=== PATIENT | male | born 1950 | race Caucasian/White ===

== ENCOUNTER → 2017-11-25 11:47 | Outpatient (CLI) | payer MEDICARE, OTHER, SELFPAY ==
--- NOTE | 2017-11-25 | DI.RAD.S_ITS ---
PROCEDURE: XR LUMBAR SPINE 2-3V INDICATIONS: LOW BACK PAIN TECHNIQUE: 3 views of the lumbar spine were acquired. COMPARISON: None. FINDINGS: Bones: 5 [id number] vertebrae are present. There is multilevel minimal to mild retrolisthesis of the lumbar spine most notable at L1 on L2 and L5 on S1. Multilevel mild to moderate disc space narrowing is present. Moderate to severe foraminal narrowing is noted at multiple levels particularly at L4-5 and L5-S1.. No vertebral body compression fractures. No suspicious bony lesions. Multilevel anterior osteophyte are present most significant at L1-L2. Soft tissues: Overlying bowel gas pattern is normal. No suspicious soft tissue calcifications. IMPRESSION: Degenerative changes as above most notable at L5-S1. Dictated by: Juana Cole M.D. on 11/25/2017 at 15:32 Approved by: Juana Cole M.D. on 11/25/2017 at 15:35
== END ==
PROVIDERS: Visit Provider Physician Assistant
DX: M51.37 Other intervertebral disc degeneration, lumbosacral region (principal)
CPT/HCPCS: 72100

== ENCOUNTER → 2017-12-09 08:07 | Outpatient (CLI) | payer MEDICARE, OTHER, SELFPAY ==
--- NOTE | 2017-12-09 | DI.MRI.S_ITS ---
PROCEDURE: MR THORACIC SPINE WO CON INDICATIONS: SCIATICA LEFT SIDE TECHNIQUE: Noncontrast sagittal T1 spine echo and T2 fast spin echo, sagittal STIR, axial T1 and T2 fast spin echo through the thoracic spine. COMPARISON: [facility], MR, THORACIC SPINE W/O CONTRAST, 01/20/2006, 7:45. [facility], RG, XR T-SPINE 2-3V, 11/27/2005, 9:40. [facility], MR, MR LUMBAR SPINE WO CON, 12/09/2017, 9:19. FINDINGS: Image quality: Excellent. Alignment and Curvature: There is normal bony alignment. Bone Marrow: Marrow is of normal overall signal. No acute vertebral body compression fractures. Spinal Cord: Visualized spinal cord is normal in size and signal. Paraspinous Soft Tissues: No paravertebral masses. Miscellaneous: On axial images, foramina appear widely patent at all scanned levels. Multilevel disc desiccation is present. Minimal disc bulge is present at T2-3-1, posterior central small protrusion at T5-6, left posterior paracentral protrusion at T6-7 with indentation of the anterior thecal sac and cord, similar appearance at T7-8 although less prominent, minimal central/right paracentral protrusion at T8-9, minimal disc bulge T9-10. All were present on prior exam and demonstrate interval interval progression. IMPRESSION: Multilevel disc bulges and protrusions as above with minimal interval progression compared to prior exam. Dictated by: Juana Cole M.D. on 12/09/2017 at 14:00 Approved by: Juana Cole M.D. on 12/09/2017 at 14:20
--- NOTE | 2017-12-09 | DI.MRI.S_ITS ---
PROCEDURE: MR LUMBAR SPINE WO CON INDICATIONS: SCIATICA LEFT SIDE TECHNIQUE: Noncontrast sagittal T1 spin echo and T2 fast echo, sagittal STIR, axial T1 and T2 fast spin echo through the lumbar spine. In cases with scoliosis, additional coronal T2 fast spin echo may be performed. COMPARISON: [facility], CR, XR LUMBAR SPINE 2-3V, 11/25/2017, 11:48. FINDINGS: Image quality: Excellent. Alignment and Curvature: There is normal bony alignment. Bone Marrow: Marrow is of normal overall signal. Increased T1 and T2 signal is present within the T12 vertebral body, L2 and L3 posterior vertebral body/pedicle regions. There is most suggestive of hemangiomas. No acute vertebral body compression fractures. Spinal Cord: Conus medullaris terminates at the L1 level. Visualized cord demonstrates normal signal and size. Paraspinous Soft Tissues: No paravertebral masses. Partially visualized T2 hyperintensity is present within the left kidney, suggestive of cyst. No priors are available for comparison.. Discs: Mild to moderate desiccation is present throughout the lumbar spine most severe at L1-L2 and L2-3. L1-L2: Mild disc bulge with compromise of the right lateral recess. There is mild epidural lipomatosis as well as facet and ligamentum flavum hypertrophy. Mild spinal stenosis is present. Mild bilateral foraminal narrowing. L2-L3: Mild disc bulge with mild/moderate spinal stenosis. There is prominent facet and ligamentum flavum hypertrophy as well as minimal to mild epidural lipomatosis. Moderate right and mild to moderate left foraminal narrowing. L3-L4: Mild disc bulge with mild spinal stenosis. There is moderate left and mild to moderate right foraminal narrowing with facet and ligamentum flavum hypertrophy. L4-L5: Mild broad-based disc bulge with mild compromise lateral recesses bilaterally. Moderate spinal stenosis is present. There is moderate to severe left and mild to moderate right foraminal narrowing with facet and ligamentum flavum hypertrophy. L5-S1: Mild disc bulge with mild spinal stenosis. Moderate to severe left and mild to moderate right foraminal narrowing facet and ligamentum flavum hypertrophy. IMPRESSION: 1. Multilevel degenerative changes are present. 2. Mild to moderate spinal stenosis most notable at L4-5 secondary to disc bulges with contributing effects of facet/ligamentum flavum arthropathy as well as epidural lipomatosis. 3. Multilevel foraminal narrowing most severe at L4-5 and L5-S1 secondary to facet arthropathy. 3. Left renal T2 hyperintensity, partially visualized as above. No priors are available for comparison. Further evaluation with ultrasound may be obtained to fully visualize and characterize the lesion. Dictated by: Juana Cole M.D. on 12/09/2017 at 14:21 Approved by: Juana Cole M.D. on 12/09/2017 at 14:29
== END ==
PROVIDERS: PCP Physician Assistant; Visit Provider Physician Assistant
DX: M51.36 Other intervertebral disc degeneration, lumbar region (principal); M47.817 Spondylosis without myelopathy or radiculopathy, lumbosacral region; M51.84 Other intervertebral disc disorders, thoracic region; M54.32 Sciatica, left side
CPT/HCPCS: 72146; 72148

== ENCOUNTER 2018-04-07 21:48 | Emergency (ER) | payer MEDICARE, OTHER, SELFPAY ==
[2018-04-07 21:50] VITALS: BP 154/83; PULSE 78; RESP 16; TEMP 37.2; O2SAT 98
--- NOTE | 2018-04-07 22:29 | DI.CT.S_ITS ---
PROCEDURE: CT LUMBAR SPINE WO CON INDICATIONS: Increased low back pain status post back surgery TECHNIQUE: Noncontrast 3 mm thick sections acquired from the T12 level to the sacrum. Sagittal and coronal reformats were constructed. For radiation dose reduction, the following was used: automated exposure control. COMPARISON: None. FINDINGS: Image quality: Excellent. Bones: Postsurgical changes compatible with left L4-L5 and L5-S1 laminotomies. There is normal bony alignment. No acute vertebral body compression fractures. L4 and L5 mildly displaced spinous process fractures are noted. No suspicious lytic or blastic bony lesions. No pars defects. Soft tissues: No retroperitoneal masses or hematomas. Inflammatory stranding and small air locules noted in the subcutaneous fat of the posterior spelled paraspinal soft tissues possibly related to recent surgery, however infectious process cannot be excluded by imaging alone. Visualized aorta is normal in caliber. IMPRESSION: 1. L4 and L5 spinous process fractures. 2. Status post L4-L5 and L5-S1 left hemilaminotomies. 3. Inflammatory stranding and air locules in the posterior paraspinal soft tissues which could related to recent surgery versus cellulitis. Please correlate with clinical data. Dictated by: Leda Cedeño MD, PhD on 04/08/2018 at 7:28 Approved by: Leda Cedeño MD, PhD on 04/08/2018 at 7:46
--- NOTE | 2018-04-07 22:35 | ED.BACK ---
HPI - Back Pain/Injury General Chief Complaint: Back Pain/Injury Stated Complaint: Back Pain,s/p back surger Wednesday Time Seen by Provider: 04/07/18 22:15 Source: patient and family () Limitations: no limitations History of Present Illness HPI Narrative: This is a 67-year-old male who had laminectomy recently at [facility]. Patient states his pain was somewhat controlled but has been worse on the last day or 2. He has been taking oxycodone as well as sometimes Soma. Patient has not had any new trauma, no new falls. He did have a fever but they contacted his surgeon which they stated that is not uncommon after surgery. Patient was discharged within 24 hr of his surgery although he was able to ambulate. He was told to ambulate regularly on the patient has been doing this but seems to increase his pain when he does. He felt like he has had some new pain kind of into the left buttock as well as some tingly down his leg. He has not had any loss of bowel or bladder control. Incision Um has had very small amount of drainage but nothing purulent. Related Data Home Medications Medication Instructions Recorded Confirmed ibuprofen 600 mg PO TID 04/07/18 04/07/18 methocarbamol [Robaxin-750] 750 mg PO QID 04/07/18 04/07/18 oxycodone 15 mg PO Q4-6H PRN 04/07/18 04/07/18 Previous Rx's Medication Instructions Recorded amitriptyline 150 mg PO HS #45 tab 05/29/16 cephalexin [Keflex] 500 mg PO QID #20 cap 06/29/16 Allergies Allergy/AdvReac Type Severity Reaction Status Date / Time iodine [IODINE] Allergy Unknown Hot rash Verified 04/07/18 21:49 Review of Systems Review of Systems All systems reviewed & are unremarkable except as noted in HPI and below Constitutional Reports fever(s) and Denies weakness Cardiovascular Denies chest pain, Denies irregular heart rhythm, Denies lightheadedness, Denies palpitations, Denies dyspnea, Denies dyspnea on exertion and Denies orthopnea Respiratory Denies cough, Denies dyspnea, Denies dyspnea on exertion and Denies wheezing Gastrointestinal Gastrointestinal: Denies abdominal pain, Denies change in bowel habits, Reports constipation ( Had BM today), Denies nausea, Denies vomiting and Denies other ( fecal incontinence) Genitourinary Denies urinary incontinence Musculoskeletal Reports as per HPI ( healing incision), Reports back pain and Reports tingling Integumentary/Breasts Reports wounds ( healing incision) Neurologic Denies sensory deficit, Reports tingling and Denies weakness Endocrine Denies palpitations Allergic/Immunologic Denies wheezing Exam Narrative Exam Narrative: GENERAL: Alert and oriented x three, obese male in moderate distress. HEENT: Head normocephalic, atraumatic, EOMI, pupils reactive, face symmetric, moist mucous membranes NECK: Supple, full range of motion CARDIOVASCULAR: Regular rate and rhythm without murmurs, rubs or gallops. RESPIRATORY: Breath sounds equal bilaterally, no wheezes rales or rhonchi. ABDOMEN: Soft, nontender. Normoactive bowel sounds all 4 quadrants. No guarding or rebound, rigidity, no mass : No CVA tenderness BACK: No cervical, thoracic or lumbar vertebral point tenderness. Patient has Slightly decreased range of motion. patient is able to roll over the bed without any assistance. He is able to lift and move his legs without any assistance although appears somewhat uncomfortable. Patient's gait Has not been tested.. Rectal exam is Normal sphincter tone. Muscle strength is 5/5 in lower extremities, DTRs are 2/4 and lower extremities. Dorsalis pedis and tibialis pulses are 2+ and lower extremities. Sensation is intact in the lower extremities. EXTREMITIES: Normal range of motion, no clubbing or edema. Neurovascularly intact NEUROLOGICAL: Cranial nerves II through XII grossly intact. Moving all extremities SKIN: Warm, dry, no petechiae, no rashes, patient has midline incision over the lower lumbar spine that appears clean dry and intact with some dried blood in scabbing. No erythema, no cellulitis, no foul order drainage. Initial Vital Signs Initial Vital Signs: Vital Signs Temperature 99.0 F 04/07/18 21:50 Pulse Rate 78 04/07/18 21:50 Respiratory Rate 16 04/07/18 21:50 Blood Pressure 154/83 H 04/07/18 21:50 Pulse Oximetry 98 04/07/18 21:50 Course Orders Ordered: ED Orders 04/07/18 22:29 CT lumbar spine wo con Stat 04/07/18 22:42 Basic Metabolic Panel Stat Complete Blood Count AUTO DIFF Stat Procalcitonin Stat Discontinued Medications Diazepam (Valium) 5 mg PO NOW ONE Stop: 04/07/18 22:30 Last Admin: 04/07/18 22:45 Dose: 5 mg Hydromorphone HCl (Dilaudid) 1 mg IV NOW ONE Stop: 04/07/18 22:30 Last Admin: 04/07/18 22:45 Dose: 1 mg Ketorolac Tromethamine (Toradol) 60 mg IM NOW ONE Stop: 04/07/18 22:30 Last Admin: 04/07/18 22:43 Dose: Ketorolac Tromethamine (Toradol) 30 mg IV NOW ONE Stop: 04/07/18 23:20 Last Admin: 04/07/18 23:21 Dose: 30 mg Reevaluation(s) Reevaluation #1: Patient's Patient is minimally improved. Time: 23:05 Reevaluation #2: patient's pain improved after addition of Torodal to other pain medication. Patient and I reviewed his lab work as well as imaging finding. They are aware that the CT was without contrast and therefore not is useful in terms of infection but his lab work med physical exam did not show any signs of infection. Patient and I discussed the medications that he has on he can continue his oxycodone and Soma for pain control. He has meloxicam which she has not been taking he has been taking ibuprofen so we discussed stopping the ibuprofen and increasing the meloxicam. Patient and his were comfortable with this plan. Time: 00:17 Vital Signs - 8 hr 04/07/18 21:50 04/07/18 23:16 04/08/18 00:34 Temperature 99.0 F Pulse Rate 78 67 66 Respiratory Rate 16 15 Blood Pressure 154/83 H 113/60 Blood Pressure [Right Arm] 145/73 H Pulse Oximetry 98 91 94 MDM - Back Pain/Injury Lab Data Result diagrams: 04/07/18 22:42 04/07/18 22:42 Lab Results 04/07/18 04/07/18 04/07/18 Range/Units 22:42 22:42 22:42 WBC 6.7 (4.5-11.0) X10^3/uL RBC 4.26 L (4.5-5.9) X10^6/uL Hgb 12.5 L (13.5-17.5) g/dL Hct 36.4 L (41-53) % MCV 85.4 (80-100) fL MCH 29.3 (26-34) PG MCHC 34.3 (30-36) % RDW 13.7 (11.6-14.8) % Plt Count 185 (150-400) X10^3/uL Neut % (Auto) 62.7 (50-75) % Lymph % (Auto) 21.4 L (25-40) % [place] % (Auto) 8.9 (3-14) % Eos % (Auto) 6.3 H (2-4) % Baso % (Auto) 0.7 (0-2) % Neut # (Auto) 4200 (1470-9323) /uL Sodium 138 (137-145) mmol/L Potassium 4.5 (3.4-5.1) mmol/L Chloride 101 (98-107) mmol/L Carbon Dioxide 34 H (22-32) mmol/L BUN 22 H (9-20) mg/dL Creatinine 1.00 (0.66-1.25) mg/dL Estimated GFR > 60.0 (>60) mL/min BUN/Creatinine Ratio 22.0 (6-22) Glucose 92 (80-110) mg/dL Calcium 8.9 (8.4-10.2) mg/dL Procalcitonin < 0.05 (<0.5) ng/mL Urine Dip Bedside Urine Glucose Negative Bedside Urine Bilirubin - Negative Bedside Urine Ketone - Negative Urine Specific [place] 1.015 Bedside Urine Occult Blood - Negative Bedside Urine pH 6.5 Bedside Urine Protein - Negative Bedside Urine Urobilinogen - Negative Bedside Urine Nitrite - Negative Bedside Urine Leukocytes - Negative Esterase Discharge Plan Departure Patient Disposition: Home Clinical Impression: Back pain, History of laminectomy Discharge Date/Time: 04/08/18 00:22 Interventions: ED Discharge Assessment Last Done: 04/08/18 00:34 Instructions: Back Pain (Alternative Therapy) Activity Restrictions/Additional Instructions: Follow-up at your scheduled appointment for recheck. Take medications as prescribed, these medications can make you sleepy do not drive, perform hazards activities or make any major decisions while taking them. You may take meloxicam with your oxycodone and methocarbamol. Do not take meloxicam with ibuprofen. Continue to take stool softener as prescribed. Return for new weakness, loss of sensation, bowel or bladder incontinence or other new or concerning symptoms. Prescriptions: No Action amitriptyline 100 MG tablet 150 mg PO HS Qty: 45 RF: 5 cephalexin [Keflex] 500 MG capsule 500 mg PO QID Qty: 20 RF: 0 methocarbamol [Robaxin-750] 750 mg Tablet 750 mg PO QID RF: 0 ibuprofen 600 mg Tablet 600 mg PO TID RF: 0 oxycodone 15 mg Tablet, Oral Only 15 mg PO Q4-6H PRN (Reason: Pain (Scale Score 1-3)) RF: 0
[2018-04-07] MEDS: diazePAM 5 MG TABLET PO (22:45)
[2018-04-07] MEDS: HYDROMORPHONE 1 MG INJ IV (22:45)
[2018-04-07 23:00] LABS: Add Manual Diff / Slide Review NO; Basophils Percent Auto 0.7 % (0-2); Eosinophils Percent Auto 6.3 % (2-4); Hematocrit 36.4 % (41-53); Hemoglobin 12.5 g/dL (13.5-17.5); Lymphocytes Percent Auto 21.4 % (25-40); Mean Corpuscular HGB Conc 34.3 % (30-36); Mean Corpuscular Hemoglobin 29.3 PG (26-34); Mean Corpuscular Volume 85.4 fL (80-100); Monocytes Percent Auto 8.9 % (3-14); Neutrophils Absolute Auto 4200 /uL (3000-5900); Neutrophils Percent Auto 62.7 % (50-75); Platelet Count 185 X10^3/uL (150-400); Red Blood Cell Count 4.26 X10^6/uL (4.5-5.9); Red Cell Distribution Width 13.7 % (11.6-14.8); White Blood Cell Count 6.7 X10^3/uL (4.5-11.0)
[2018-04-07 23:06] LABS: Blood Urea Nitrogen 22 mg/dL (9-20); Calcium 8.9 mg/dL (8.4-10.2); Carbon Dioxide 34 mmol/L (22-32); Chloride 101 mmol/L (98-107); Estimated Glomerular Filt Rate > 60.0 mL/min (>60); Glucose 92 mg/dL (80-110); HEMOLYSIS < 15 (0-50); Potassium 4.5 mmol/L (3.4-5.1); Sodium 138 mmol/L (137-145)
[2018-04-07 23:16] VITALS: BP 145/73; PULSE 67; O2SAT 91
[2018-04-07 23:21] LABS: Procalcitonin < 0.05 ng/mL (<0.5)
[2018-04-07] MEDS: KETOROLAC 60 MG/2 ML VIAL 30 MG IV (23:21)
[2018-04-08 00:34] VITALS: BP 113/60; PULSE 66; RESP 15; O2SAT 94
--- NOTE | 2018-04-08 00:40 | PC.NURSE ---
Pt had surgery on Wednesday,today his pain is getting worse radiating down his left leg with numnbess/tingling.
== END 2018-04-08 00:22 | disposition home or self-care (01) ==
PROVIDERS: Emergency Provider Emergency Medicine; PCP Physician Assistant
DX: M54.9 Dorsalgia, unspecified (principal); Z98.890 Other specified postprocedural states
CPT/HCPCS: 36415; 72131; 80048; 81003; 84145; 85025; 96374; 96375; 99282; 99284; J1170; J1885

== ENCOUNTER 2018-10-24 10:30 | Outpatient (RCR) | payer MEDICARE, OTHER, SELFPAY ==
--- NOTE | 2018-09-29 13:22 | PT.OIE ---
Current Diagnoses Other chronic pain (09/28/18) Unilateral primary osteoarthritis, right knee (09/28/18) Dorsalgia, unspecified (09/28/18) Provider Visit Care Team Role Provider Type Dania Wiley PA-C Family Provider Advanced Merry Go Round Operator Primary Care Provider Specialty: Internal Medicine Address: [address] [place] [address], [id number] Email: Rosalba Lutz PA-C Attending Provider Non-Staff Specialty: Medical Address: [address] [place] [address], [id number] Email: Physical Therapy Initial Evaluation PT-OP-A Visit Information Start: 09/28/18 15:59 Freq: Status: Active Protocol: Document 09/28/18 16:00 EA (Rec: 09/29/18 13:03 EA [id number]) Out-Patient Physical Therapy Visit Information Visit Information Visit Type Initial Evaluation Visit Start Time 15:15 Visit Stop Time 16:55 Total Visit Minutes 40 Visit Number 1 Number of LABORER PRESTRESSED CONCRETE Visits 0 Evaluation Information Evaluation Date 09/28/18 Precautions Precautions History of low back surgery ( 2018) PT-OP-B Current Condition Start: 09/28/18 15:59 Freq: Status: Active Protocol: Document 09/28/18 16:00 EA (Rec: 09/29/18 13:03 EA [id number]) Current Condition History of Current Condition Onset Date s/p R partial knee replacement Current Complaints Pain and weakness to right knee History of Current Condition Patient is s/p right partial knee replacement 6 weeks ago at [facility], and s/p lumbar laminectomy in 2018 with residual pain to low back area region. Patient was sent to home after a day surgery with no post surgery HEP. Patient thinks that right knee delayed healing is due to weight gained since the surgery. Pt denies any fall or recent injury, denies calf pain and tightness. Prior Treatments and Tests Left partial knee surgery 2014 Right partial knee July 2017 Lumbar laminectomy 2017 Future Testing and Treatments Planned None identified Treatment Goals Patient/Caregiver Goals Patient would like to improve in all types mobility with no increase of pain. Patient would like to improve knee ROM Patient would like to improve RLE strength Prior Functional Status Baseline Function- ADL's Independent Baseline Function- Mobility Independent Baseline Function- Gait Independent with no AD with no difficulty a year ago prior to OA diagnosis Baseline Function- Work/School Retired Baseline Function- Recreation/Hobbies Patient likes to perform yard works, distance walking Current Functional Impairments (Reported) Functional Limitations- ADL's Independent but difficulty in all activities that require standing with side to side movement and staris. Functional Limitations- Mobility/Gait Independent but difficulty in all activities that require standing with side to side movement and stairs. Functional Limitations- Work/School Retired Functional Limitations- Recreation/ Difficulty in all yard works Hobbies with lots backward and lateral movement PT-OP-C Subjective Start: 09/28/18 15:59 Freq: Status: Active Protocol: Document 09/28/18 16:00 EA (Rec: 09/29/18 13:03 EA [id number]) OP-PT Subjective Patient Comments Patient Comments I have pain when move backward and side to side motion. I just want to get rid of the pain in the knee. Patient reports low back pain si not the main issue, he just want everyone aware that he has low back surgery and pain. Patient Reported Progress Same Patient Questionnaires Lower Extremity Functional Scale LEFS Score 52 LEFS Impairment 20 to 39% Impaired (Score 48- 62) OP-PT Pain Assessment Location Right Anterior Medial Knee Pain Location Details 3 Scale Used Numeric (1 - 10) Description Pinching Pressure Tender Tightness Frequency Intermittent Pain Aggravating Factors Activity Walking Stair Climbing Bending Lifting Other Pain Aggravating Factors Bending and side to side movement Pain Alleviating Factors Cold Medication Home Pain Medication Use Pain Medications Used Yes PT-OP-D Balance Start: 09/28/18 15:59 Freq: Status: Active Protocol: Document 09/28/18 16:00 EA (Rec: 09/29/18 13:03 EA [id number]) OP-PT Balance Assessment Sitting Balance Static Sitting Balance Ability Normal Dynamic Sitting Balance Ability Normal Standing Balance Static Standing Balance Ability Good Dynamic Standing Balance Ability Good Device Used none Balance Tests Single Limb Standing Single Limb- Right < 2 seconds Single Limb- Left < 3 seconds Locke Fall Scale Copyright Permission Chucky MORRELL, Chucky RM, Phli SJ. Development of a scale to identify the fall- prone patient. Can J Aging 1989;8;366-7. Judah Locke (2009). Preventing patient falls. (2nd ed). [place]: Michael. PT-OP-F Manual Assessment Start: 09/28/18 15:59 Freq: Status: Active Protocol: Document 09/28/18 16:00 EA (Rec: 09/29/18 13:03 EA [id number]) Manual Assessments Soft Tissue Assessment Soft Tissue Mobility Assessment right quads, hamstring, calf tightness Joint Mobility Assessment Joint Mobility Assessment PF and TF joint hypomobile PT-OP-G Mobility & Gait Start: 09/28/18 15:59 Freq: Status: Active Protocol: Document 09/28/18 16:00 EA (Rec: 09/29/18 13:03 EA [id number]) OP Gait Assessment Gait Gait Assistance Required: Independent Assistive Devices Assistive Device None Gait Deviations General Gait Pattern Antalgic Decreased Stride Length Factors Limiting Gait Function Factors Limiting Gait Function Decreased Strength Limited Range of Motion Pain Stair Climbing Evaluation Evaluation Level of Assist On Stairs Independent Devices Stair Climbing Assistive Devices Right Railing Technique/Endurance Stair Climbing Direction Ascend and Descend Stair Climbing Technique Step to Step Number of Steps Climbed 4 Stair Climbing Set # Repetitions (reps) 1 Comments Stair Climbing Comments requires arm help with left foot descent first PT-OP-J Posture/Palpation/Skin Start: 09/28/18 15:59 Freq: Status: Active Protocol: Document 09/28/18 16:00 EA (Rec: 09/29/18 13:03 EA [id number]) Posture Evaluation Comments Posture Comments Fair general body posture; no knee valgus/varus deformity noted Palpation Assessment Location One Palpation Location Right qudas, hamstring, medial knee joint Palpation Findings Soft Tissue Tightness Muscle Guarding Tenderness Palpation Details Grade 1 pitting edema to right knee PT-OP-K Range of Motion Start: 09/28/18 15:59 Freq: Status: Active Protocol: Document 09/28/18 16:00 EA (Rec: 09/29/18 13:03 EA [id number]) Hip Goniometric Range of Motion Hip Measured in Degrees Right Active Hip ROM WFL Yes Knee Goniometric Range of Motion Knee Measured in Degrees Right Patient Position Supine Flexion Active (degrees) 110 Extension Active (degrees) 5 Left Patient Position Supine Flexion Active (degrees) 120 Extension Active (degrees) 0 Knee ROM Limitations Knee ROM Limitations Soft Tissue Tightness Pain Swelling PT-OP-L Special Tests Start: 09/28/18 15:59 Freq: Status: Active Protocol: Document 09/28/18 16:04 EA (Rec: 09/29/18 13:05 EA [id number]) Special Tests Knee Special Tests Valgus- 0 Degrees Test Results - Valgus- 25 Degrees Test Results - Staci's Test Test Results - PT-OP-M Strength Start: 09/28/18 15:59 Freq: Status: Active Protocol: Document 09/28/18 16:00 EA (Rec: 09/29/18 13:03 EA [id number]) Knee Strength Knee Manual Muscle Testing Right Flexion (S2) 4- Good- Extension (L3) 4+ Good+ Comments Pain elicits with max resistance PT-OP-Q Treatments Start: 09/28/18 15:59 Freq: Status: Active Protocol: Document 09/28/18 16:00 EA (Rec: 09/29/18 13:03 EA [id number]) Self-Care/Home Management Treatment Education Patient Education Body Mechanics Home Exercise Program Joint Protection Pain Management Safety PT-OP-T Assessment and Plan Start: 09/28/18 15:59 Freq: Status: Active Protocol: Document 09/28/18 15:15 EA (Rec: 09/29/18 11:14 EA [id number]) Physical Therapy Assessment Rehab Potential Rehabilitation Potential Good Evaluation Complexity Number of Personal Factors/Comorbidities 3 or More Number of Body Systems Impaired 3 Clinical Presentation at Evaluation Evolving Impairments Impairments Activity Tolerance Balance Functional Activities Pain ROM Soft Tissue Mobility Strength Goals Three Impairment Impaired knee ROM Wardrobe Specialist Goal (LTG) Patient will increase knee flexion AROM to 120degrees and 0 deg EXT to improved patients gait LTG Duration 4 wks Two Impairment LEFS 52/80 Half-Way Goal (LTG) Patient have LEFS > 60 LTG Duration 4 wks One Impairment NO HEP in place Wardrobe Specialist Goal (LTG) Patient will comply and perform HEP independently LTG Duration 3 wks Assessment Summary Assessment Pleasant 68 y/o M patient who is s/p right partial knee replacement 6 weeks ago with no secondary healing complications. Today patient exhibits gait difficulty, stairs difficulty, and decreased ability in side to side movement due to knee pain . Objective assessment reveals LOM to flexion and extension, 1 grade MMT lower than normal, SLS difficulty and lack of right push off during gait. MCL test and meniscus test reveals negative . Due to above mentioned deficits patient unable to perform tasks that requires standing and bending knees. In my professional opinion, patient is will benefit with skilled PT to address the issues. Physical Therapy Plan Frequency and Duration Frequency of Treatment 2x/Week Duration of Treatment 8 wks Plan of Care Start Date 09/28/18 Plan of Care End Date 11/16/18 Therapeutic Interventions Therapeutic Interventions Balance Training Gait Training Home Exercise Program Joint Mobilizations Manual Therapy Patient/Caregiver Education Self-Care/Home Management Soft Tissue Mobilization Taping Therapeutic Exercises Modalities Cold Pack/Ice Massage Electric Stimulation Hot Packs Iontophoresis Next Visit Focus/Plan Next Note Type Treatment Note
--- NOTE | 2018-09-29 13:22 | PT.OPPOC ---
Current Diagnoses Other chronic pain (09/28/18) Unilateral primary osteoarthritis, right knee (09/28/18) Dorsalgia, unspecified (09/28/18) Provider Visit Care Team Role Provider Type Dania Wiley PA-C Family Provider Advanced Electrician Apprentice Powerhouse Primary Care Provider Specialty: Internal Medicine Address: [address] [place] [address], [id number] Email: Rosalba Lutz PA-C Attending Provider Non-Staff Specialty: Medical Address: [address] [place] [address], [id number] Email: Plan Of Care PT-OP-T Assessment and Plan Start: 09/28/18 15:59 Freq: Status: Active Protocol: Document 09/28/18 15:15 EA (Rec: 09/29/18 11:14 EA [id number]) Physical Therapy Assessment Rehab Potential Rehabilitation Potential Good Evaluation Complexity Number of Personal Factors/Comorbidities 3 or More Number of Body Systems Impaired 3 Clinical Presentation at Evaluation Evolving Impairments Impairments Activity Tolerance Balance Functional Activities Pain ROM Soft Tissue Mobility Strength Goals Three Impairment Impaired knee ROM Halfway Goal (LTG) Patient will increase knee flexion AROM to 120degrees and 0 deg EXT to improved patients gait LTG Duration 4 wks Two Impairment LEFS 52/80 Halfway Goal (LTG) Patient have LEFS > 60 LTG Duration 4 wks One Impairment NO HEP in place Crew Leader Gluing Goal (LTG) Patient will comply and perform HEP independently LTG Duration 3 wks Assessment Summary Assessment Pleasant 68 y/o M patient who is s/p right partial knee replacement 6 weeks ago with no secondary healing complications. Today patient exhibits gait difficulty, stairs difficulty, and decreased ability in side to side movement due to knee pain . Objective assessment reveals LOM to flexion and extension, 1 grade MMT lower than normal, SLS difficulty and lack of right push off during gait. MCL test and meniscus test reveals negative . Due to above mentioned deficits patient unable to perform tasks that requires standing and bending knees. In my professional opinion, patient is will benefit with skilled PT to address the issues. Physical Therapy Plan Frequency and Duration Frequency of Treatment 2x/Week Duration of Treatment 8 wks Plan of Care Start Date 09/28/18 Plan of Care End Date 11/16/18 Therapeutic Interventions Therapeutic Interventions Balance Training Gait Training Home Exercise Program Joint Mobilizations Manual Therapy Patient/Caregiver Education Self-Care/Home Management Soft Tissue Mobilization Taping Therapeutic Exercises Modalities Cold Pack/Ice Massage Electric Stimulation Hot Packs Iontophoresis Next Visit Focus/Plan Next Note Type Treatment Note Plan of Care Dates Plan of Care Start Date 09/28/18 Plan of Care End Date 11/16/18 Please Sign and Return: I have reviewed this Plan of Care and certify that the skilled therapy services above are required to meet the patient?s needs. Physician Signature Date Printed Name and Credentials Clinical Instructor Signature Printed Name and Credentials
--- NOTE | 2018-10-03 13:10 | PT.OTN ---
Current Diagnoses Other chronic pain (10/03/18) Unilateral primary osteoarthritis, right knee (10/03/18) Dorsalgia, unspecified (10/03/18) Physical Therapy Treatment Note PT-OP-A Visit Information Start: 09/28/18 15:59 Freq: Status: Active Protocol: Document 10/03/18 12:56 EA (Rec: 10/03/18 13:02 EA [id number]) Out-Patient Physical Therapy Visit Information Visit Information Visit Type Treatment Note Visit Start Time 12:15 Visit Stop Time 13:08 Total Visit Minutes 53 Visit Number 2 PT-OP-B Current Condition Start: 09/28/18 15:59 Freq: Status: Active Protocol: Document 09/28/18 16:00 EA (Rec: 09/29/18 13:03 EA [id number]) Current Condition History of Current Condition Onset Date s/p R partial knee replacement Current Complaints Pain and weakness to right knee History of Current Condition Patient is s/p right partial knee replacement 6 weeks ago at [facility], and s/p lumbar laminectomy in 2018 with residual pain to low back area region. Patient was sent to home after a day surgery with no post surgery HEP. Patient thinks that right knee delayed healing is due to weight gained since the surgery. Pt denies any fall or recent injury, denies calf pain and tightness. Prior Treatments and Tests Left partial knee surgery 2014 Right partial knee July 2017 Lumbar laminectomy 2017 Future Testing and Treatments Planned None identified Treatment Goals Patient/Caregiver Goals Patient would like to improve in all types mobility with no increase of pain. Patient would like to improve knee ROM Patient would like to improve RLE strength Prior Functional Status Baseline Function- ADL's Independent Baseline Function- Mobility Independent Baseline Function- Gait Independent with no AD with no difficulty a year ago prior to OA diagnosis Baseline Function- Work/School Retired Baseline Function- Recreation/Hobbies Patient likes to perform yard works, distance walking Current Functional Impairments (Reported) Functional Limitations- ADL's Independent but difficulty in all activities that require standing with side to side movement and staris. Functional Limitations- Mobility/Gait Independent but difficulty in all activities that require standing with side to side movement and stairs. Functional Limitations- Work/School Retired Functional Limitations- Recreation/ Difficulty in all yard works Hobbies with lots backward and lateral movement PT-OP-C Subjective Start: 09/28/18 15:59 Freq: Status: Active Protocol: Document 10/03/18 12:56 EA (Rec: 10/03/18 13:02 EA [id number]) OP-PT Subjective Patient Comments Patient Comments Pt reports follow recommended pain management; states left knes swelling gone down a bit but still painful even at night time. Patient Reported Progress Improving PT-OP-D Balance Start: 09/28/18 15:59 Freq: Status: Active Protocol: Document 09/28/18 16:00 EA (Rec: 09/29/18 13:03 EA [id number]) OP-PT Balance Assessment Sitting Balance Static Sitting Balance Ability Normal Dynamic Sitting Balance Ability Normal Standing Balance Static Standing Balance Ability Good Dynamic Standing Balance Ability Good Device Used none Balance Tests Single Limb Standing Single Limb- Right < 2 seconds Single Limb- Left < 3 seconds Locke Fall Scale Copyright Permission Chucky MORRELL, Chucky RM, Phil SJ. Development of a scale to identify the fall- prone patient. Can J Aging 1989;8;366-7. Judah Locke (2009). Preventing patient falls. (2nd ed). [place]: Michael. PT-OP-F Manual Assessment Start: 09/28/18 15:59 Freq: Status: Active Protocol: Document 09/28/18 16:00 EA (Rec: 09/29/18 13:03 EA [id number]) Manual Assessments Soft Tissue Assessment Soft Tissue Mobility Assessment right quads, hamstring, calf tightness Joint Mobility Assessment Joint Mobility Assessment PF and TF joint hypomobile PT-OP-G Mobility & Gait Start: 09/28/18 15:59 Freq: Status: Active Protocol: Document 09/28/18 16:00 EA (Rec: 09/29/18 13:03 EA [id number]) OP Gait Assessment Gait Gait Assistance Required: Independent Assistive Devices Assistive Device None Gait Deviations General Gait Pattern Antalgic Decreased Stride Length Factors Limiting Gait Function Factors Limiting Gait Function Decreased Strength Limited Range of Motion Pain Stair Climbing Evaluation Evaluation Level of Assist On Stairs Independent Devices Stair Climbing Assistive Devices Right Railing Technique/Endurance Stair Climbing Direction Ascend and Descend Stair Climbing Technique Step to Step Number of Steps Climbed 4 Stair Climbing Set # Repetitions (reps) 1 Comments Stair Climbing Comments requires arm help with left foot descent first PT-OP-J Posture/Palpation/Skin Start: 09/28/18 15:59 Freq: Status: Active Protocol: Document 09/28/18 16:00 EA (Rec: 09/29/18 13:03 EA [id number]) Posture Evaluation Comments Posture Comments Fair general body posture; no knee valgus/varus deformity noted Palpation Assessment Location One Palpation Location Right qudas, hamstring, medial knee joint Palpation Findings Soft Tissue Tightness Muscle Guarding Tenderness Palpation Details Grade 1 pitting edema to right knee PT-OP-K Range of Motion Start: 09/28/18 15:59 Freq: Status: Active Protocol: Document 09/28/18 16:00 EA (Rec: 09/29/18 13:03 EA [id number]) Hip Goniometric Range of Motion Hip Measured in Degrees Right Active Hip ROM WFL Yes Knee Goniometric Range of Motion Knee Measured in Degrees Right Patient Position Supine Flexion Active (degrees) 110 Extension Active (degrees) 5 Left Patient Position Supine Flexion Active (degrees) 120 Extension Active (degrees) 0 Knee ROM Limitations Knee ROM Limitations Soft Tissue Tightness Pain Swelling PT-OP-L Special Tests Start: 09/28/18 15:59 Freq: Status: Active Protocol: Document 09/28/18 16:04 EA (Rec: 09/29/18 13:05 EA [id number]) Special Tests Knee Special Tests Valgus- 0 Degrees Test Results - Valgus- 25 Degrees Test Results - Staci's Test Test Results - PT-OP-M Strength Start: 09/28/18 15:59 Freq: Status: Active Protocol: Document 09/28/18 16:00 EA (Rec: 09/29/18 13:03 EA [id number]) Knee Strength Knee Manual Muscle Testing Right Flexion (S2) 4- Good- Extension (L3) 4+ Good+ Comments Pain elicits with max resistance PT-OP-Q Treatments Start: 09/28/18 15:59 Freq: Status: Active Protocol: Document 10/03/18 12:56 EA (Rec: 10/03/18 13:02 EA [id number]) Cardio Equipment Recumbent Stepper (Sci-Fit) Duration (Minutes) 7 Resistance 2 Seat Position 15 Gym Equipment Cable Column (Body Solid) Leg Curl Resistance 30 lbs Reps/Time x 15 reps Leg Extension Details bilat Resistance x 40 lbs Reps/Time x 15 reps Shuttle Recovery Bilateral Squats Resistance 75Lbs Shuttle Recovery Platform Stable Reps/Time x 15 reps Unilateral Squats Resistance 25 Shuttle Recovery Platform Stable Reps/Time x 15 Therapeutic Exercises Supine Exercises 3 Supine Exercise Name hamstring stretch Reps/Minutes x 15 sh x 2 reps 2 Supine Exercise Name qudas setting w/ roll under knee Side right Reps/Minutes x 5SH x 10 reps 1 Supine Exercise Name heel slides Reps/Minutes x15 reps Manual Therapy Treatment Soft Tissue Mobilization 1 Mobilization Type Cross-Friction Intensity/Depth Moderate Body Position Supine Joint Mobilizations 1 Joint ant/post Grade II Body Position Supine PT-OP-R Modalities Start: 09/28/18 15:59 Freq: Status: Active Protocol: Document 10/03/18 12:56 EA (Rec: 10/03/18 13:02 EA [id number]) Electric Stimulation Electric Stimulation Interferential Current (IFC) Body Location right qdistal quads Duration (Minutes) 15 Intensity 25 Contraction Type Normal Patient Position Hooklying Combined With Heat/Cold Cold Pack PT-OP-T Assessment and Plan Start: 09/28/18 15:59 Freq: Status: Active Protocol: Document 10/03/18 12:56 EA (Rec: 10/03/18 13:02 EA [id number]) Physical Therapy Assessment Assessment Summary Assessment Tolerated treatment well with slight knee discomfort during bending. Physical Therapy Plan Next Visit Focus/Plan Next Note Type Treatment Note Next Visit Plan Cont. with current plan
--- NOTE | 2018-10-11 12:10 | PT.OTN ---
Current Diagnoses Other chronic pain (10/11/18) Unilateral primary osteoarthritis, right knee (10/11/18) Dorsalgia, unspecified (10/11/18) Physical Therapy Treatment Note PT-OP-A Visit Information Start: 09/28/18 15:59 Freq: Status: Active Protocol: Document 10/11/18 09:49 EA (Rec: 10/11/18 10:23 EA [id number]) Out-Patient Physical Therapy Visit Information Visit Information Visit Type Treatment Note Visit Start Time 09:45 Visit Stop Time 10:30 Total Visit Minutes 53 Visit Number 3 PT-OP-B Current Condition Start: 09/28/18 15:59 Freq: Status: Active Protocol: Document 09/28/18 16:00 EA (Rec: 09/29/18 13:03 EA [id number]) Current Condition History of Current Condition Onset Date s/p R partial knee replacement Current Complaints Pain and weakness to right knee History of Current Condition Patient is s/p right partial knee replacement 6 weeks ago at [facility], and s/p lumbar laminectomy in 2018 with residual pain to low back area region. Patient was sent to home after a day surgery with no post surgery HEP. Patient thinks that right knee delayed healing is due to weight gained since the surgery. Pt denies any fall or recent injury, denies calf pain and tightness. Prior Treatments and Tests Left partial knee surgery 2014 Right partial knee July 2017 Lumbar laminectomy 2017 Future Testing and Treatments Planned None identified Treatment Goals Patient/Caregiver Goals Patient would like to improve in all types mobility with no increase of pain. Patient would like to improve knee ROM Patient would like to improve RLE strength Prior Functional Status Baseline Function- ADL's Independent Baseline Function- Mobility Independent Baseline Function- Gait Independent with no AD with no difficulty a year ago prior to OA diagnosis Baseline Function- Work/School Retired Baseline Function- Recreation/Hobbies Patient likes to perform yard works, distance walking Current Functional Impairments (Reported) Functional Limitations- ADL's Independent but difficulty in all activities that require standing with side to side movement and staris. Functional Limitations- Mobility/Gait Independent but difficulty in all activities that require standing with side to side movement and stairs. Functional Limitations- Work/School Retired Functional Limitations- Recreation/ Difficulty in all yard works Hobbies with lots backward and lateral movement PT-OP-C Subjective Start: 09/28/18 15:59 Freq: Status: Active Protocol: Document 10/11/18 09:49 EA (Rec: 10/11/18 10:23 EA [id number]) OP-PT Subjective Patient Comments Patient Comments Pt reports pain made him awake most of the night; states he is scheduled to see his surgeon. Patient Reported Progress Improving PT-OP-D Balance Start: 09/28/18 15:59 Freq: Status: Active Protocol: Document 09/28/18 16:00 EA (Rec: 09/29/18 13:03 EA [id number]) OP-PT Balance Assessment Sitting Balance Static Sitting Balance Ability Normal Dynamic Sitting Balance Ability Normal Standing Balance Static Standing Balance Ability Good Dynamic Standing Balance Ability Good Device Used none Balance Tests Single Limb Standing Single Limb- Right < 2 seconds Single Limb- Left < 3 seconds Locke Fall Scale Copyright Permission Chucky MORRELL, Chucky RM, [place]. Development of a scale to identify the fall- prone patient. Can J Aging 1989;8;366-7. Judah Locke (2009). Preventing patient falls. (2nd ed). [place]: Michael. PT-OP-F Manual Assessment Start: 09/28/18 15:59 Freq: Status: Active Protocol: Document 09/28/18 16:00 EA (Rec: 09/29/18 13:03 EA [id number]) Manual Assessments Soft Tissue Assessment Soft Tissue Mobility Assessment right quads, hamstring, calf tightness Joint Mobility Assessment Joint Mobility Assessment PF and TF joint hypomobile PT-OP-G Mobility & Gait Start: 09/28/18 15:59 Freq: Status: Active Protocol: Document 09/28/18 16:00 EA (Rec: 09/29/18 13:03 EA [id number]) OP Gait Assessment Gait Gait Assistance Required: Independent Assistive Devices Assistive Device None Gait Deviations General Gait Pattern Antalgic Decreased Stride Length Factors Limiting Gait Function Factors Limiting Gait Function Decreased Strength Limited Range of Motion Pain Stair Climbing Evaluation Evaluation Level of Assist On Stairs Independent Devices Stair Climbing Assistive Devices Right Railing Technique/Endurance Stair Climbing Direction Ascend and Descend Stair Climbing Technique Step to Step Number of Steps Climbed 4 Stair Climbing Set # Repetitions (reps) 1 Comments Stair Climbing Comments requires arm help with left foot descent first PT-OP-J Posture/Palpation/Skin Start: 09/28/18 15:59 Freq: Status: Active Protocol: Document 09/28/18 16:00 EA (Rec: 09/29/18 13:03 EA [id number]) Posture Evaluation Comments Posture Comments Fair general body posture; no knee valgus/varus deformity noted Palpation Assessment Location One Palpation Location Right qudas, hamstring, medial knee joint Palpation Findings Soft Tissue Tightness Muscle Guarding Tenderness Palpation Details Grade 1 pitting edema to right knee PT-OP-K Range of Motion Start: 09/28/18 15:59 Freq: Status: Active Protocol: Document 09/28/18 16:00 EA (Rec: 09/29/18 13:03 EA [id number]) Hip Goniometric Range of Motion Hip Measured in Degrees Right Active Hip ROM WFL Yes Knee Goniometric Range of Motion Knee Measured in Degrees Right Patient Position Supine Flexion Active (degrees) 110 Extension Active (degrees) 5 Left Patient Position Supine Flexion Active (degrees) 120 Extension Active (degrees) 0 Knee ROM Limitations Knee ROM Limitations Soft Tissue Tightness Pain Swelling PT-OP-L Special Tests Start: 09/28/18 15:59 Freq: Status: Active Protocol: Document 09/28/18 16:04 EA (Rec: 09/29/18 13:05 EA [id number]) Special Tests Knee Special Tests Valgus- 0 Degrees Test Results - Valgus- 25 Degrees Test Results - Staci's Test Test Results - PT-OP-M Strength Start: 09/28/18 15:59 Freq: Status: Active Protocol: Document 09/28/18 16:00 EA (Rec: 09/29/18 13:03 EA [id number]) Knee Strength Knee Manual Muscle Testing Right Flexion (S2) 4- Good- Extension (L3) 4+ Good+ Comments Pain elicits with max resistance PT-OP-Q Treatments Start: 09/28/18 15:59 Freq: Status: Active Protocol: Document 10/11/18 09:49 EA (Rec: 10/11/18 10:23 EA [id number]) Gym Equipment Cable Column (Body Solid) Leg Curl Resistance 30 lbs Reps/Time x 15 reps Leg Extension Details bilat Resistance x 40 lbs Reps/Time x 15 reps Shuttle Recovery Bilateral Squats Resistance 100-125Lbs Shuttle Recovery Platform Stable Reps/Time x 15 reps Unilateral Squats Resistance 25-37# Shuttle Recovery Platform Stable Reps/Time x 15 Therapeutic Exercises Supine Exercises 3 Supine Exercise Name hamstring stretch Reps/Minutes x 15 sh x 2 reps 2 Supine Exercise Name qudas setting w/ roll under knee Side right Reps/Minutes x 5SH x 10 reps 1 Supine Exercise Name heel slides Reps/Minutes x15 reps Standing Exercises 2 Standing Exercise Name 4 -6 stairs step down and back up Resistance BW Comments rails support 1 Standing Exercise Name Wall quads sets Resistance small ball Reps/Minutes x5 SH x 10 reps PT-OP-R Modalities Start: 09/28/18 15:59 Freq: Status: Active Protocol: Document 10/11/18 10:23 EA (Rec: 10/11/18 10:23 EA [id number]) Electric Stimulation Electric Stimulation Interferential Current (IFC) Body Location right qdistal quads Duration (Minutes) 15 Intensity 25 Contraction Type Normal Patient Position Hooklying Combined With Heat/Cold Cold Pack PT-OP-T Assessment and Plan Start: 09/28/18 15:59 Freq: Status: Active Protocol: Document 10/11/18 09:49 EA (Rec: 10/11/18 10:23 EA [id number]) Physical Therapy Assessment Assessment Summary Assessment Slight discomfort with stairs and leg extension exercises., otherwise tolerated most of the therex. Physical Therapy Plan Next Visit Focus/Plan Next Note Type Treatment Note Next Visit Plan Cont. with current plan
--- NOTE | 2018-10-13 14:18 | PT.OTN ---
Current Diagnoses Other chronic pain (10/13/18) Unilateral primary osteoarthritis, right knee (10/13/18) Dorsalgia, unspecified (10/13/18) Physical Therapy Treatment Note PT-OP-A Visit Information Start: 09/28/18 15:59 Freq: Status: Active Protocol: Document 10/13/18 13:40 EA (Rec: 10/13/18 13:45 EA [id number]) Out-Patient Physical Therapy Visit Information Visit Information Visit Type Treatment Note Visit Start Time 12:15 Visit Stop Time 13:08 Total Visit Minutes 53 Visit Number 3 PT-OP-B Current Condition Start: 09/28/18 15:59 Freq: Status: Active Protocol: Document 09/28/18 16:00 EA (Rec: 09/29/18 13:03 EA [id number]) Current Condition History of Current Condition Onset Date s/p R partial knee replacement Current Complaints Pain and weakness to right knee History of Current Condition Patient is s/p right partial knee replacement 6 weeks ago at [facility], and s/p lumbar laminectomy in 2018 with residual pain to low back area region. Patient was sent to home after a day surgery with no post surgery HEP. Patient thinks that right knee delayed healing is due to weight gained since the surgery. Pt denies any fall or recent injury, denies calf pain and tightness. Prior Treatments and Tests Left partial knee surgery 2014 Right partial knee July 2017 Lumbar laminectomy 2017 Future Testing and Treatments Planned None identified Treatment Goals Patient/Caregiver Goals Patient would like to improve in all types mobility with no increase of pain. Patient would like to improve knee ROM Patient would like to improve RLE strength Prior Functional Status Baseline Function- ADL's Independent Baseline Function- Mobility Independent Baseline Function- Gait Independent with no AD with no difficulty a year ago prior to OA diagnosis Baseline Function- Work/School Retired Baseline Function- Recreation/Hobbies Patient likes to perform yard works, distance walking Current Functional Impairments (Reported) Functional Limitations- ADL's Independent but difficulty in all activities that require standing with side to side movement and staris. Functional Limitations- Mobility/Gait Independent but difficulty in all activities that require standing with side to side movement and stairs. Functional Limitations- Work/School Retired Functional Limitations- Recreation/ Difficulty in all yard works Hobbies with lots backward and lateral movement PT-OP-C Subjective Start: 09/28/18 15:59 Freq: Status: Active Protocol: Document 10/13/18 13:40 EA (Rec: 10/13/18 13:45 EA [id number]) OP-PT Subjective Patient Comments Patient Comments Pt reports left knee pain still bothers him even after last session; states warmth knee feels my knee is not progressing well. PT-OP-D Balance Start: 09/28/18 15:59 Freq: Status: Active Protocol: Document 09/28/18 16:00 EA (Rec: 09/29/18 13:03 EA [id number]) OP-PT Balance Assessment Sitting Balance Static Sitting Balance Ability Normal Dynamic Sitting Balance Ability Normal Standing Balance Static Standing Balance Ability Good Dynamic Standing Balance Ability Good Device Used none Balance Tests Single Limb Standing Single Limb- Right < 2 seconds Single Limb- Left < 3 seconds Chucky Fall Scale Copyright Permission Chucky MORRELL, Chucky RM, [place] S[place]. Development of a scale to identify the fall- prone patient. Can J Aging 1989;8;366-7. Judah Locke (2009). Preventing patient falls. (2nd ed). [place]: Michael. PT-OP-F Manual Assessment Start: 09/28/18 15:59 Freq: Status: Active Protocol: Document 09/28/18 16:00 EA (Rec: 09/29/18 13:03 EA [id number]) Manual Assessments Soft Tissue Assessment Soft Tissue Mobility Assessment right quads, hamstring, calf tightness Joint Mobility Assessment Joint Mobility Assessment PF and TF joint hypomobile PT-OP-G Mobility & Gait Start: 09/28/18 15:59 Freq: Status: Active Protocol: Document 09/28/18 16:00 EA (Rec: 09/29/18 13:03 EA [id number]) OP Gait Assessment Gait Gait Assistance Required: Independent Assistive Devices Assistive Device None Gait Deviations General Gait Pattern Antalgic Decreased Stride Length Factors Limiting Gait Function Factors Limiting Gait Function Decreased Strength Limited Range of Motion Pain Stair Climbing Evaluation Evaluation Level of Assist On Stairs Independent Devices Stair Climbing Assistive Devices Right Railing Technique/Endurance Stair Climbing Direction Ascend and Descend Stair Climbing Technique Step to Step Number of Steps Climbed 4 Stair Climbing Set # Repetitions (reps) 1 Comments Stair Climbing Comments requires arm help with left foot descent first PT-OP-J Posture/Palpation/Skin Start: 09/28/18 15:59 Freq: Status: Active Protocol: Document 09/28/18 16:00 EA (Rec: 09/29/18 13:03 EA [id number]) Posture Evaluation Comments Posture Comments Fair general body posture; no knee valgus/varus deformity noted Palpation Assessment Location One Palpation Location Right qudas, hamstring, medial knee joint Palpation Findings Soft Tissue Tightness Muscle Guarding Tenderness Palpation Details Grade 1 pitting edema to right knee PT-OP-K Range of Motion Start: 09/28/18 15:59 Freq: Status: Active Protocol: Document 09/28/18 16:00 EA (Rec: 09/29/18 13:03 EA [id number]) Hip Goniometric Range of Motion Hip Measured in Degrees Right Active Hip ROM WFL Yes Knee Goniometric Range of Motion Knee Measured in Degrees Right Patient Position Supine Flexion Active (degrees) 110 Extension Active (degrees) 5 Left Patient Position Supine Flexion Active (degrees) 120 Extension Active (degrees) 0 Knee ROM Limitations Knee ROM Limitations Soft Tissue Tightness Pain Swelling PT-OP-L Special Tests Start: 09/28/18 15:59 Freq: Status: Active Protocol: Document 09/28/18 16:04 EA (Rec: 09/29/18 13:05 EA [id number]) Special Tests Knee Special Tests Valgus- 0 Degrees Test Results - Valgus- 25 Degrees Test Results - Staci's Test Test Results - PT-OP-M Strength Start: 09/28/18 15:59 Freq: Status: Active Protocol: Document 09/28/18 16:00 EA (Rec: 09/29/18 13:03 EA [id number]) Knee Strength Knee Manual Muscle Testing Right Flexion (S2) 4- Good- Extension (L3) 4+ Good+ Comments Pain elicits with max resistance PT-OP-Q Treatments Start: 09/28/18 15:59 Freq: Status: Active Protocol: Document 10/13/18 13:40 EA (Rec: 10/13/18 13:45 EA [id number]) Cardio Equipment Bicycle (Upright) Duration (Minutes) 8 Resistance 3 Seat Position 6 Therapeutic Exercises Supine Exercises 3 Supine Exercise Name hamstring stretch Reps/Minutes x 15 sh x 2 reps 2 Supine Exercise Name qudas setting w/ roll under knee Side right Reps/Minutes x 5SH x 10 reps 1 Supine Exercise Name heel slides Reps/Minutes x15 reps Manual Therapy Treatment Soft Tissue Mobilization 1 Mobilization Type Cross-Friction Myofascial Release Intensity/Depth Moderate Body Position Supine PT-OP-R Modalities Start: 09/28/18 15:59 Freq: Status: Active Protocol: Document 10/13/18 13:40 EA (Rec: 10/13/18 13:45 EA [id number]) Electric Stimulation Electric Stimulation Interferential Current (IFC) Body Location right qdistal quads Duration (Minutes) 15 Intensity 25 Contraction Type Normal Patient Position Hooklying Combined With Heat/Cold Cold Pack PT-OP-T Assessment and Plan Start: 09/28/18 15:59 Freq: Status: Active Protocol: Document 10/13/18 13:40 EA (Rec: 10/13/18 13:45 EA [id number]) Physical Therapy Assessment Assessment Summary Assessment No noted signs of active inflammation except with a slight increased temp to right knee. Advised patient to see his doctor if pain and swelling do not get better even weight bearing activities is decreased. Physical Therapy Plan Next Visit Focus/Plan Next Note Type Treatment Note Next Visit Plan Cont. with current plan.
--- NOTE | 2018-10-17 15:15 | PT.OTN ---
Current Diagnoses Other chronic pain (10/17/18) Unilateral primary osteoarthritis, right knee (10/17/18) Dorsalgia, unspecified (10/17/18) Physical Therapy Treatment Note PT-OP-A Visit Information Start: 09/28/18 15:59 Freq: Status: Active Protocol: Document 10/17/18 14:34 EA (Rec: 10/17/18 14:38 EA [id number]) Out-Patient Physical Therapy Visit Information Visit Information Visit Type Treatment Note Visit Start Time 12:15 Visit Stop Time 13:08 Total Visit Minutes 53 Visit Number 4 PT-OP-B Current Condition Start: 09/28/18 15:59 Freq: Status: Active Protocol: Document 09/28/18 16:00 EA (Rec: 09/29/18 13:03 EA [id number]) Current Condition History of Current Condition Onset Date s/p R partial knee replacement Current Complaints Pain and weakness to right knee History of Current Condition Patient is s/p right partial knee replacement 6 weeks ago at [facility], and s/p lumbar laminectomy in 2018 with residual pain to low back area region. Patient was sent to home after a day surgery with no post surgery HEP. Patient thinks that right knee delayed healing is due to weight gained since the surgery. Pt denies any fall or recent injury, denies calf pain and tightness. Prior Treatments and Tests Left partial knee surgery 2014 Right partial knee July 2017 Lumbar laminectomy 2017 Future Testing and Treatments Planned None identified Treatment Goals Patient/Caregiver Goals Patient would like to improve in all types mobility with no increase of pain. Patient would like to improve knee ROM Patient would like to improve RLE strength Prior Functional Status Baseline Function- ADL's Independent Baseline Function- Mobility Independent Baseline Function- Gait Independent with no AD with no difficulty a year ago prior to OA diagnosis Baseline Function- Work/School Retired Baseline Function- Recreation/Hobbies Patient likes to perform yard works, distance walking Current Functional Impairments (Reported) Functional Limitations- ADL's Independent but difficulty in all activities that require standing with side to side movement and staris. Functional Limitations- Mobility/Gait Independent but difficulty in all activities that require standing with side to side movement and stairs. Functional Limitations- Work/School Retired Functional Limitations- Recreation/ Difficulty in all yard works Hobbies with lots backward and lateral movement PT-OP-C Subjective Start: 09/28/18 15:59 Freq: Status: Active Protocol: Document 10/17/18 14:34 EA (Rec: 10/17/18 14:38 EA [id number]) OP-PT Subjective Patient Comments Patient Comments Pt reports complied with HEP and pre-cautions; states it is much feeling improved. PT-OP-D Balance Start: 09/28/18 15:59 Freq: Status: Active Protocol: Document 09/28/18 16:00 EA (Rec: 09/29/18 13:03 EA [id number]) OP-PT Balance Assessment Sitting Balance Static Sitting Balance Ability Normal Dynamic Sitting Balance Ability Normal Standing Balance Static Standing Balance Ability Good Dynamic Standing Balance Ability Good Device Used none Balance Tests Single Limb Standing Single Limb- Right < 2 seconds Single Limb- Left < 3 seconds Locke Fall Scale Copyright Permission Chucky MORRELL, Chucky RM, [place] S[place]. Development of a scale to identify the fall- prone patient. Can J Aging 1989;8;366-7. Judah Locke (2009). Preventing patient falls. (2nd ed). [place]: Michael. PT-OP-F Manual Assessment Start: 09/28/18 15:59 Freq: Status: Active Protocol: Document 09/28/18 16:00 EA (Rec: 09/29/18 13:03 EA [id number]) Manual Assessments Soft Tissue Assessment Soft Tissue Mobility Assessment right quads, hamstring, calf tightness Joint Mobility Assessment Joint Mobility Assessment PF and TF joint hypomobile PT-OP-G Mobility & Gait Start: 09/28/18 15:59 Freq: Status: Active Protocol: Document 09/28/18 16:00 EA (Rec: 09/29/18 13:03 EA [id number]) OP Gait Assessment Gait Gait Assistance Required: Independent Assistive Devices Assistive Device None Gait Deviations General Gait Pattern Antalgic Decreased Stride Length Factors Limiting Gait Function Factors Limiting Gait Function Decreased Strength Limited Range of Motion Pain Stair Climbing Evaluation Evaluation Level of Assist On Stairs Independent Devices Stair Climbing Assistive Devices Right Railing Technique/Endurance Stair Climbing Direction Ascend and Descend Stair Climbing Technique Step to Step Number of Steps Climbed 4 Stair Climbing Set # Repetitions (reps) 1 Comments Stair Climbing Comments requires arm help with left foot descent first PT-OP-J Posture/Palpation/Skin Start: 09/28/18 15:59 Freq: Status: Active Protocol: Document 09/28/18 16:00 EA (Rec: 09/29/18 13:03 EA [id number]) Posture Evaluation Comments Posture Comments Fair general body posture; no knee valgus/varus deformity noted Palpation Assessment Location One Palpation Location Right qudas, hamstring, medial knee joint Palpation Findings Soft Tissue Tightness Muscle Guarding Tenderness Palpation Details Grade 1 pitting edema to right knee PT-OP-K Range of Motion Start: 09/28/18 15:59 Freq: Status: Active Protocol: Document 09/28/18 16:00 EA (Rec: 09/29/18 13:03 EA [id number]) Hip Goniometric Range of Motion Hip Measured in Degrees Right Active Hip ROM WFL Yes Knee Goniometric Range of Motion Knee Measured in Degrees Right Patient Position Supine Flexion Active (degrees) 110 Extension Active (degrees) 5 Left Patient Position Supine Flexion Active (degrees) 120 Extension Active (degrees) 0 Knee ROM Limitations Knee ROM Limitations Soft Tissue Tightness Pain Swelling PT-OP-L Special Tests Start: 09/28/18 15:59 Freq: Status: Active Protocol: Document 09/28/18 16:04 EA (Rec: 09/29/18 13:05 EA [id number]) Special Tests Knee Special Tests Valgus- 0 Degrees Test Results - Valgus- 25 Degrees Test Results - Staci's Test Test Results - PT-OP-M Strength Start: 09/28/18 15:59 Freq: Status: Active Protocol: Document 09/28/18 16:00 EA (Rec: 09/29/18 13:03 EA [id number]) Knee Strength Knee Manual Muscle Testing Right Flexion (S2) 4- Good- Extension (L3) 4+ Good+ Comments Pain elicits with max resistance PT-OP-Q Treatments Start: 09/28/18 15:59 Freq: Status: Active Protocol: Document 10/17/18 14:34 EA (Rec: 10/17/18 14:38 EA [id number]) Cardio Equipment Bicycle (Upright) Duration (Minutes) 8 Resistance 3 Seat Position 6-5 Gym Equipment Shuttle Recovery Bilateral Squats Resistance 100Lbs Shuttle Recovery Platform Stable Reps/Time x 15 reps Unilateral Squats Resistance 25-37# Shuttle Recovery Platform Stable Reps/Time x 15 Therapeutic Exercises Supine Exercises 3 Supine Exercise Name hamstring stretch Reps/Minutes x 15 sh x 2 reps 2 Supine Exercise Name qudas setting w/ roll under knee Side right Reps/Minutes x 5SH x 10 reps 1 Supine Exercise Name heel slides Reps/Minutes x15 reps Standing Exercises 3 Standing Exercise Name Terminal knee ext Resistance Lv2 Reps/Minutes x 15 reps 1 Standing Exercise Name Wall quads sets Resistance small ball Reps/Minutes x5 SH x 10 reps Manual Therapy Treatment Soft Tissue Mobilization 1 Body Location Right quads Mobilization Type Cross-Friction Myofascial Release Intensity/Depth Moderate Body Position Supine Joint Mobilizations 1 Joint ant/post Grade II Body Position Supine PT-OP-R Modalities Start: 09/28/18 15:59 Freq: Status: Active Protocol: Document 10/17/18 14:34 EA (Rec: 10/17/18 14:38 EA [id number]) Electric Stimulation Electric Stimulation Interferential Current (IFC) Body Location right qdistal quads Duration (Minutes) 15 Intensity 25 Contraction Type Normal Patient Position Hooklying Combined With Heat/Cold Cold Pack PT-OP-T Assessment and Plan Start: 09/28/18 15:59 Freq: Status: Active Protocol: Document 10/17/18 14:34 EA (Rec: 10/17/18 14:38 EA [id number]) Physical Therapy Assessment Assessment Summary Assessment Tolerated treatment well. Improved ROM and decreased swelling noted at this time. Physical Therapy Plan Next Visit Focus/Plan Next Note Type Treatment Note
--- NOTE | 2018-10-24 14:10 | PT.OTN ---
Current Diagnoses Other chronic pain (10/24/18) Unilateral primary osteoarthritis, right knee (10/24/18) Dorsalgia, unspecified (10/24/18) Physical Therapy Treatment Note PT-OP-A Visit Information Start: 09/28/18 15:59 Freq: Status: Active Protocol: Document 10/24/18 12:10 EA (Rec: 10/24/18 12:15 EA [id number]) Out-Patient Physical Therapy Visit Information Visit Information Visit Type Treatment Note Visit Start Time 10:30 Visit Stop Time 11:15 Total Visit Minutes 43 Visit Number 6 PT-OP-B Current Condition Start: 09/28/18 15:59 Freq: Status: Active Protocol: Document 09/28/18 16:00 EA (Rec: 09/29/18 13:03 EA [id number]) Current Condition History of Current Condition Onset Date s/p R partial knee replacement Current Complaints Pain and weakness to right knee History of Current Condition Patient is s/p right partial knee replacement 6 weeks ago at [facility], and s/p lumbar laminectomy in 2018 with residual pain to low back area region. Patient was sent to home after a day surgery with no post surgery HEP. Patient thinks that right knee delayed healing is due to weight gained since the surgery. Pt denies any fall or recent injury, denies calf pain and tightness. Prior Treatments and Tests Left partial knee surgery 2014 Right partial knee July 2017 Lumbar laminectomy 2017 Future Testing and Treatments Planned None identified Treatment Goals Patient/Caregiver Goals Patient would like to improve in all types mobility with no increase of pain. Patient would like to improve knee ROM Patient would like to improve RLE strength Prior Functional Status Baseline Function- ADL's Independent Baseline Function- Mobility Independent Baseline Function- Gait Independent with no AD with no difficulty a year ago prior to OA diagnosis Baseline Function- Work/School Retired Baseline Function- Recreation/Hobbies Patient likes to perform yard works, distance walking Current Functional Impairments (Reported) Functional Limitations- ADL's Independent but difficulty in all activities that require standing with side to side movement and staris. Functional Limitations- Mobility/Gait Independent but difficulty in all activities that require standing with side to side movement and stairs. Functional Limitations- Work/School Retired Functional Limitations- Recreation/ Difficulty in all yard works Hobbies with lots backward and lateral movement PT-OP-C Subjective Start: 09/28/18 15:59 Freq: Status: Active Protocol: Document 10/24/18 12:10 EA (Rec: 10/24/18 12:15 EA [id number]) OP-PT Subjective Patient Comments Patient Comments Pt reports right is improving well as swelling comes goes but warmth and pain is quite low. PT-OP-D Balance Start: 09/28/18 15:59 Freq: Status: Active Protocol: Document 09/28/18 16:00 EA (Rec: 09/29/18 13:03 EA [id number]) OP-PT Balance Assessment Sitting Balance Static Sitting Balance Ability Normal Dynamic Sitting Balance Ability Normal Standing Balance Static Standing Balance Ability Good Dynamic Standing Balance Ability Good Device Used none Balance Tests Single Limb Standing Single Limb- Right < 2 seconds Single Limb- Left < 3 seconds Locke Fall Scale Copyright Permission Chucky MORRELL, Chucky RM, [place]. Development of a scale to identify the fall- prone patient. Can J Aging 1989;8;366-7. Judah Locke (2009). Preventing patient falls. (2nd ed). [place]: Michael. PT-OP-F Manual Assessment Start: 09/28/18 15:59 Freq: Status: Active Protocol: Document 09/28/18 16:00 EA (Rec: 09/29/18 13:03 EA [id number]) Manual Assessments Soft Tissue Assessment Soft Tissue Mobility Assessment right quads, hamstring, calf tightness Joint Mobility Assessment Joint Mobility Assessment PF and TF joint hypomobile PT-OP-G Mobility & Gait Start: 09/28/18 15:59 Freq: Status: Active Protocol: Document 09/28/18 16:00 EA (Rec: 09/29/18 13:03 EA [id number]) OP Gait Assessment Gait Gait Assistance Required: Independent Assistive Devices Assistive Device None Gait Deviations General Gait Pattern Antalgic Decreased Stride Length Factors Limiting Gait Function Factors Limiting Gait Function Decreased Strength Limited Range of Motion Pain Stair Climbing Evaluation Evaluation Level of Assist On Stairs Independent Devices Stair Climbing Assistive Devices Right Railing Technique/Endurance Stair Climbing Direction Ascend and Descend Stair Climbing Technique Step to Step Number of Steps Climbed 4 Stair Climbing Set # Repetitions (reps) 1 Comments Stair Climbing Comments requires arm help with left foot descent first PT-OP-J Posture/Palpation/Skin Start: 09/28/18 15:59 Freq: Status: Active Protocol: Document 09/28/18 16:00 EA (Rec: 09/29/18 13:03 EA [id number]) Posture Evaluation Comments Posture Comments Fair general body posture; no knee valgus/varus deformity noted Palpation Assessment Location One Palpation Location Right qudas, hamstring, medial knee joint Palpation Findings Soft Tissue Tightness Muscle Guarding Tenderness Palpation Details Grade 1 pitting edema to right knee PT-OP-K Range of Motion Start: 09/28/18 15:59 Freq: Status: Active Protocol: Document 09/28/18 16:00 EA (Rec: 09/29/18 13:03 EA [id number]) Hip Goniometric Range of Motion Hip Measured in Degrees Right Active Hip ROM WFL Yes Knee Goniometric Range of Motion Knee Measured in Degrees Right Patient Position Supine Flexion Active (degrees) 110 Extension Active (degrees) 5 Left Patient Position Supine Flexion Active (degrees) 120 Extension Active (degrees) 0 Knee ROM Limitations Knee ROM Limitations Soft Tissue Tightness Pain Swelling PT-OP-L Special Tests Start: 09/28/18 15:59 Freq: Status: Active Protocol: Document 09/28/18 16:04 EA (Rec: 09/29/18 13:05 EA [id number]) Special Tests Knee Special Tests Valgus- 0 Degrees Test Results - Valgus- 25 Degrees Test Results - Staci's Test Test Results - PT-OP-M Strength Start: 09/28/18 15:59 Freq: Status: Active Protocol: Document 09/28/18 16:00 EA (Rec: 09/29/18 13:03 EA [id number]) Knee Strength Knee Manual Muscle Testing Right Flexion (S2) 4- Good- Extension (L3) 4+ Good+ Comments Pain elicits with max resistance PT-OP-Q Treatments Start: 09/28/18 15:59 Freq: Status: Active Protocol: Document 10/24/18 12:10 EA (Rec: 10/24/18 12:15 EA [id number]) Cardio Equipment Bicycle (Upright) Duration (Minutes) 8 Resistance 3 Seat Position 6-5 Gym Equipment Cable Column (Body Solid) Leg Curl Resistance 30 lbs Reps/Time x 15 reps Shuttle Recovery Unilateral Squats Resistance 25-37# Shuttle Recovery Platform Stable Reps/Time x 15 Therapeutic Exercises Supine Exercises 3 Supine Exercise Name hamstring stretch Reps/Minutes x 15 sh x 2 reps 2 Supine Exercise Name quads setting w/ roll under knee Side right Reps/Minutes x 5SH x 10 reps Sitting Exercises 1 Sitting Exercise Name FAQ Resistance 4 lbs Reps/Minutes x 15 x 2 sets Standing Exercises 3 Standing Exercise Name Terminal knee ext Resistance Lv3 Reps/Minutes x 15 reps 2 Standing Exercise Name 4 -6 stairs step down and back up Resistance BW Comments rails support 1 Standing Exercise Name Wall quads sets Resistance small ball Reps/Minutes x5 SH x 10 reps PT-OP-R Modalities Start: 09/28/18 15:59 Freq: Status: Active Protocol: Document 10/24/18 12:10 EA (Rec: 10/24/18 12:15 EA [id number]) Electric Stimulation Electric Stimulation Interferential Current (IFC) Body Location right qdistal quads Duration (Minutes) 15 Intensity 25 Contraction Type Normal Patient Position Hooklying Combined With Heat/Cold Cold Pack PT-OP-T Assessment and Plan Start: 09/28/18 15:59 Freq: Status: Active Protocol: Document 10/24/18 12:10 EA (Rec: 10/24/18 12:15 EA [id number]) Physical Therapy Assessment Assessment Summary Assessment Improved ROM and quads control noted with less warmth to palpate at this time. Physical Therapy Plan Next Visit Focus/Plan Next Note Type Treatment Note Next Visit Plan Cont. with current plan.
--- NOTE | 2019-01-31 12:48 | PT.OPDS ---
Current Diagnoses Other chronic pain (10/24/18) Unilateral primary osteoarthritis, right knee (10/24/18) Dorsalgia, unspecified (10/24/18) Provider Visit Care Team Role Provider Type Dania Wiley PA-C Family Provider Advanced Family Literacy Coordinator Primary Care Provider Specialty: Internal Medicine Address: [address] [place] [address], [id number] Email: Rosalba Lutz PA-C Attending Provider Non-Staff Specialty: Medical Address: [address] [place] [address], [id number] Email: Visit Number Visit Number 6 Discharge Summary PT-OP-B Current Condition Start: 09/28/18 15:59 Freq: Status: Active Protocol: Document 09/28/18 16:00 EA (Rec: 09/29/18 13:03 EA [id number]) Current Condition History of Current Condition Onset Date s/p R partial knee replacement Current Complaints Pain and weakness to right knee History of Current Condition Patient is s/p right partial knee replacement 6 weeks ago at [facility], and s/p lumbar laminectomy in 2018 with residual pain to low back area region. Patient was sent to home after a day surgery with no post surgery HEP. Patient thinks that right knee delayed healing is due to weight gained since the surgery. Pt denies any fall or recent injury, denies calf pain and tightness. Prior Treatments and Tests Left partial knee surgery 2014 Right partial knee July 2017 Lumbar laminectomy 2017 Future Testing and Treatments Planned None identified Treatment Goals Patient/Caregiver Goals Patient would like to improve in all types mobility with no increase of pain. Patient would like to improve knee ROM Patient would like to improve RLE strength Prior Functional Status Baseline Function- ADL's Independent Baseline Function- Mobility Independent Baseline Function- Gait Independent with no AD with no difficulty a year ago prior to OA diagnosis Baseline Function- Work/School Retired Baseline Function- Recreation/Hobbies Patient likes to perform yard works, distance walking Current Functional Impairments (Reported) Functional Limitations- ADL's Independent but difficulty in all activities that require standing with side to side movement and staris. Functional Limitations- Mobility/Gait Independent but difficulty in all activities that require standing with side to side movement and stairs. Functional Limitations- Work/School Retired Functional Limitations- Recreation/ Difficulty in all yard works Hobbies with lots backward and lateral movement PT-OP-C Subjective Start: 09/28/18 15:59 Freq: Status: Active Protocol: Document 01/31/19 12:45 EA (Rec: 01/31/19 12:47 EA [id number]) OP-PT Subjective Patient Comments Patient Comments Pt is discharge to PT after not attending PT schedule. Phone made today but no response. PT-OP-D Balance Start: 09/28/18 15:59 Freq: Status: Active Protocol: Document 09/28/18 16:00 EA (Rec: 09/29/18 13:03 EA [id number]) OP-PT Balance Assessment Sitting Balance Static Sitting Balance Ability Normal Dynamic Sitting Balance Ability Normal Standing Balance Static Standing Balance Ability Good Dynamic Standing Balance Ability Good Device Used none Balance Tests Single Limb Standing Single Limb- Right < 2 seconds Single Limb- Left < 3 seconds Locke Fall Scale Copyright Permission PT-OP-F Manual Assessment Start: 09/28/18 15:59 Freq: Status: Active Protocol: Document 09/28/18 16:00 EA (Rec: 09/29/18 13:03 EA [id number]) Manual Assessments Soft Tissue Assessment Soft Tissue Mobility Assessment right quads, hamstring, calf tightness Joint Mobility Assessment Joint Mobility Assessment PF and TF joint hypomobile PT-OP-G Mobility & Gait Start: 09/28/18 15:59 Freq: Status: Active Protocol: Document 09/28/18 16:00 EA (Rec: 09/29/18 13:03 EA [id number]) OP Gait Assessment Gait Gait Assistance Required: Independent Assistive Devices Assistive Device None Gait Deviations General Gait Pattern Antalgic Decreased Stride Length Factors Limiting Gait Function Factors Limiting Gait Function Decreased Strength Limited Range of Motion Pain Stair Climbing Evaluation Evaluation Level of Assist On Stairs Independent Devices Stair Climbing Assistive Devices Right Railing Technique/Endurance Stair Climbing Direction Ascend and Descend Stair Climbing Technique Step to Step Number of Steps Climbed 4 Stair Climbing Set # Repetitions (reps) 1 Comments Stair Climbing Comments requires arm help with left foot descent first PT-OP-J Posture/Palpation/Skin Start: 09/28/18 15:59 Freq: Status: Active Protocol: Document 09/28/18 16:00 EA (Rec: 09/29/18 13:03 EA [id number]) Posture Evaluation Comments Posture Comments Fair general body posture; no knee valgus/varus deformity noted Palpation Assessment Location One Palpation Location Right qudas, hamstring, medial knee joint Palpation Findings Soft Tissue Tightness Muscle Guarding Tenderness Palpation Details Grade 1 pitting edema to right knee PT-OP-K Range of Motion Start: 09/28/18 15:59 Freq: Status: Active Protocol: Document 09/28/18 16:00 EA (Rec: 09/29/18 13:03 EA [id number]) Hip Goniometric Range of Motion Hip Right Active Hip ROM WFL Yes Knee Goniometric Range of Motion Knee Right Patient Position Supine Flexion Active (degrees) 110 Extension Active (degrees) 5 Left Patient Position Supine Flexion Active (degrees) 120 Extension Active (degrees) 0 Knee ROM Limitations Knee ROM Limitations Soft Tissue Tightness Pain Swelling PT-OP-L Special Tests Start: 09/28/18 15:59 Freq: Status: Active Protocol: Document 09/28/18 16:04 EA (Rec: 09/29/18 13:05 EA [id number]) Special Tests Knee Special Tests Valgus- 0 Degrees Test Results - Valgus- 25 Degrees Test Results - Staci's Test Test Results - PT-OP-M Strength Start: 09/28/18 15:59 Freq: Status: Active Protocol: Document 09/28/18 16:00 EA (Rec: 09/29/18 13:03 EA [id number]) Knee Strength Knee Manual Muscle Testing Right Flexion (S2) 4- Good- Extension (L3) 4+ Good+ Comments Pain elicits with max resistance PT-OP-T Assessment and Plan Start: 09/28/18 15:59 Freq: Status: Active Protocol: Document 01/31/19 12:45 EA (Rec: 01/31/19 12:47 EA [id number]) Physical Therapy Assessment Assessment Summary Assessment Pt is discharge to PT Physical Therapy Plan Discharge Physical Therapy Discharge Reasons No Longer Attending PT
== END 2019-02-02 13:46 | disposition home or self-care (01) ==
LOC: PHYS 10:30
PROVIDERS: Family Provider Physician Assistant; PCP Physician Assistant; Visit Provider Physician Assistant
DX: M17.11 Unilateral primary osteoarthritis, right knee (principal); M54.9 Dorsalgia, unspecified; G89.29 Other chronic pain
CPT/HCPCS: 97014; 97110; 97140; 97162; 97535; G0283

== ENCOUNTER → 2019-02-28 12:32 | Outpatient (CLI) | payer MEDICARE, OTHER, SELFPAY ==
--- NOTE | 2019-02-28 | DI.US.S_ITS ---
PROCEDURE: US ABDOMEN LIMITED INDICATIONS: RIGHT LOWER QUADRANT PAIN; POSSIBLE HERNIA TECHNIQUE: Real-time focused scanning was performed of the inguinal region, with image documentation. COMPARISON: None. FINDINGS: In the area of palpable abnormality involving the right lower quadrant, no sonographic evidence of hernia. No discrete mass is seen. IMPRESSION: No sonographic evidence of hernia. CT evaluation could be considered. Dictated by: Gio Tiwari M.D. on 02/28/2019 at 14:10 Approved by: Gio Tiwari M.D. on 02/28/2019 at 14:10
== END ==
PROVIDERS: Family Provider Physician Assistant; PCP Physician Assistant; Visit Provider Physician Assistant
DX: R10.31 Right lower quadrant pain (principal); K40.90 Unilateral inguinal hernia, without obstruction or gangrene, not specified as recurrent
CPT/HCPCS: 76705

== ENCOUNTER → 2019-09-04 10:27 | Outpatient (CLI) | payer MEDICARE, OTHER, SELFPAY ==
[2019-09-04 11:39] LABS: Add Manual Diff / Slide Review NO; Basophils Absolute Auto 100 /uL (0-100); Basophils Percent Auto 1.1 % (0-2); Eosinophils Absolute Auto 200 /uL (0-450); Eosinophils Percent Auto 3.5 % (2-4); Hematocrit 48.1 % (41-53); Hemoglobin 16.1 g/dL (13.5-17.5); Lymphocytes Absolute Auto 1700 /uL (1100-4500); Mean Corpuscular HGB Conc 33.5 % (30-36); Mean Corpuscular Hemoglobin 28.8 PG (26-34); Mean Corpuscular Volume 85.7 fL (80-100); Monocytes Absolute Auto 400 /uL (0-900); Monocytes Percent Auto 7.7 % (3-14); Neutrophils Absolute Auto 3400 /uL (1500-7000); Neutrophils Percent Auto 58.7 % (50-75); Platelet Count 223 X10^3/uL (150-400); Red Blood Cell Count 5.61 X10^6/uL (4.5-5.9); Red Cell Distribution Width 14.5 % (11.6-14.8); White Blood Cell Count 5.8 X10^3/uL (4.5-11.0)
[2019-09-04 11:46] LABS: Hemoglobin A1C% w Est Avg Glu 5.8 % (4.0-6.0)
[2019-09-04 11:54] LABS: Alanine Aminotransferase 38 IU/L (<50); Albumin 4.2 g/dL (3.5-5.0); Albumin Globulin Ratio 1.4 (1.0-2.8); Alkaline Phosphatase 87 U/L (38-126); Aspartate Aminotransferase 33 IU/L (17-59); Bilirubin Total 0.5 mg/dL (0.2-1.3); Blood Urea Nitrogen 20 mg/dL (9-20); Calcium 9.6 mg/dL (8.4-10.2); Carbon Dioxide 30 mmol/L (22-32); Chloride 103 mmol/L (98-107); Cholesterol 163 mg/dL (140-199); Estimated Glomerular Filt Rate > 60.0 mL/min (>60); Glucose 106 mg/dL (80-110); HDL Cholesterol 44 mg/dL (40-60); HEMOLYSIS < 15 (0-50); LDL Cholesterol Calculated 98 mg/dL (<100); Potassium 4.8 mmol/L (3.4-5.1); Sodium 140 mmol/L (137-145); Total Protein 7.2 g/dL (6.3-8.2); Triglycerides 107 mg/dL (35-150)
== END ==
PROVIDERS: Family Provider Physician Assistant; PCP Physician Assistant; Referring Provider Physician Assistant; Visit Provider Physician Assistant
DX: E78.2 Mixed hyperlipidemia (principal); I10 Essential (primary) hypertension; R73.09 Other abnormal glucose
CPT/HCPCS: 36415; 80053; 80061; 83036; 85025

== ENCOUNTER → 2019-11-17 15:16 | Outpatient (CLI) | payer MEDICARE, OTHER, SELFPAY ==
--- NOTE | 2019-11-17 15:24 | DI.RAD.S_ITS ---
PROCEDURE: XR CHEST 2V INDICATIONS: SHORTNESS OF BREATH TECHNIQUE: 2 views of the chest were acquired. COMPARISON: [facility], , CHEST 2 VIEW, 07/18/2014, 19:36. FINDINGS: Surgical changes and devices: None. Lungs and pleura: Lungs are clear. No pleural effusions or pneumothorax. Mediastinum: Mediastinal contours are normal. Heart size is normal. Bones and chest wall: No suspicious bony abnormalities. Soft tissues appear unremarkable. IMPRESSION: No acute cardiopulmonary findings. Dictated by: Kristina Yañez M.D. on 11/17/2019 at 16:20 Approved by: Kristina Yañez M.D. on 11/17/2019 at 16:20
[2019-11-17 16:17] LABS: Add Manual Diff / Slide Review NO; Basophils Absolute Auto 100 /uL (0-100); Eosinophils Absolute Auto 200 /uL (0-450); Eosinophils Percent Auto 2.1 % (2-4); Hematocrit 46.1 % (41-53); Hemoglobin 15.6 g/dL (13.5-17.5); Lymphocytes Absolute Auto 1600 /uL (1100-4500); Lymphocytes Percent Auto 19.2 % (25-40); Mean Corpuscular HGB Conc 33.9 % (30-36); Mean Corpuscular Hemoglobin 28.9 PG (26-34); Mean Corpuscular Volume 85.1 fL (80-100); Monocytes Absolute Auto 500 /uL (0-900); Monocytes Percent Auto 5.6 % (3-14); Neutrophils Absolute Auto 6000 /uL (1500-7000); Neutrophils Percent Auto 72.1 % (50-75); Platelet Count 223 X10^3/uL (150-400); Red Blood Cell Count 5.42 X10^6/uL (4.5-5.9); Red Cell Distribution Width 13.8 % (11.6-14.8); White Blood Cell Count 8.4 X10^3/uL (4.5-11.0)
[2019-11-17 16:20] LABS: Alanine Aminotransferase 37 IU/L (<50); Albumin 4.3 g/dL (3.5-5.0); Albumin Globulin Ratio 1.3 (1.0-2.8); Alkaline Phosphatase 96 U/L (38-126); Aspartate Aminotransferase 31 IU/L (17-59); BUN Creatinine Ratio 25.5 (6-22); Bilirubin Total 0.4 mg/dL (0.2-1.3); Blood Urea Nitrogen 28 mg/dL (9-20); Calcium 9.8 mg/dL (8.4-10.2); Carbon Dioxide 30 mmol/L (22-32); Chloride 105 mmol/L (98-107); Estimated Glomerular Filt Rate > 60.0 mL/min (>60); Globulin 3.4 g/dL (1.7-4.1); Glucose 114 mg/dL (80-110); HEMOLYSIS 15 (0-50); Potassium 4.5 mmol/L (3.4-5.1); Sodium 141 mmol/L (137-145); Total Protein 7.7 g/dL (6.3-8.2)
[2019-11-17 17:46] LABS: TSH w/ Reflex to FT4 0.84 uIU/mL (0.47-4.68)
== END ==
PROVIDERS: Family Provider Physician Assistant; PCP Physician Assistant; Referring Provider Physician Assistant; Visit Provider Physician Assistant
DX: I10 Essential (primary) hypertension (principal); E78.2 Mixed hyperlipidemia; F41.9 Anxiety disorder, unspecified; G47.00 Insomnia, unspecified; R06.02 Shortness of breath
CPT/HCPCS: 36415; 71046; 80053; 83735; 84443; 85025

== ENCOUNTER → 2019-11-24 06:36 | Outpatient (CLI) | payer MEDICARE, OTHER, SELFPAY ==
--- NOTE | 2019-11-24 07:25 | DI.CT.S_ITS ---
PROCEDURE: CT ANGIO CHEST PE PROTOCOL INDICATIONS: Dyspnea, unspecified shortness of breath TECHNIQUE: After the administration of intravenous contrast, 2 mm thick sections acquired from the pulmonary apices to the posterior costophrenic angles. 3-dimensional maximum intensity projection (MIP) coronal and sagittal reformats were then acquired through the thorax. For radiation dose reduction, the following was used: automated exposure control, adjustment of mA and/or kV according to patient size. COMPARISON: [facility], CR, XR CHEST 2V, 11/17/2019, 15:33. FINDINGS: Image quality: Excellent. Pulmonary arteries: Pulmonary arteries are normal in size, and demonstrate no intraluminal filling defects to suggest central pulmonary embolism. Lungs and pleura: Lungs are somewhat difficult to accurately assess due to reduced inspiratory volume during scanning. This results in crowding of the bronchovascular markings in the alveoli to the degree of slight degree of pulmonary edema could be present in this patient, versus alveolar prominence of any etiology. At the right lung base there is a subpleural ovoid nodular radiodensity measuring 4 x 7 mm seen on series 5 image 151 and no pulmonary nodule elsewhere is found.. No pleural effusions or pneumothorax. Central and peripheral airways are patent. Mediastinum: Heart size is normal, without pericardial effusion. No mediastinal or hilar adenopathy. Thoracic aorta is normal in caliber and enhancement. Esophagus is normal in caliber, without hiatal hernia. Bones and chest wall: No suspicious bony lesions. Ribs and thoracic spine appear intact throughout. Thyroid gland appears normal where well seen. No axillary or supraclavicular adenopathy. Abdomen: Visualized upper abdominal solid organs appear normal in the early arterial phase of enhancement. IMPRESSION: A pulmonary embolus is not seen. Note is made of mild alveolar prominence potentially a manifestation of slight pulmonary edema, versus alveolar prominence of any etiology can produce such an appearance. For example, an early manifestation of inhalation injury or extrinsic allergic alveolitis can produce this appearance. Please continue to correlate clinically and pulmonary function tests would be very helpful in determining the clinical significance of this appearance. Note is made of a 4 x 7 mm far peripheral nodule within the right lower lobe as a incidental finding. Please correlate for risk factors. Followup noncontrast CT scanning to further assess this area in 6 months would be recommended if clinically indicated. Dictated by: Vick Ahuja M.D. on 11/24/2019 at 8:24 Approved by: Vick Ahuja M.D. on 11/24/2019 at 8:38
== END ==
PROVIDERS: Family Provider Physician Assistant; PCP Physician Assistant; Referring Provider Physician Assistant; Visit Provider Physician Assistant
DX: R06.00 Dyspnea, unspecified (principal); R06.02 Shortness of breath; R91.1 Solitary pulmonary nodule; R05 Cough; Z86.718 Personal history of other venous thrombosis and embolism
CPT/HCPCS: 71275; Q9967

== ENCOUNTER → 2019-11-28 10:15 | Outpatient (CLI) | payer MEDICARE, OTHER, SELFPAY ==
--- NOTE | 2019-11-28 | DI.ECHO.S_ITS ---
[facility] +---------+ : : [address] [place] [address] : : : : [id number] : : : : Phone: [phone]+ Echocardiogram Report + + :Name: GELA DICK Study Date: 11/28/2019 Height: 72 in : :[facility] Weight: 264 lb : : Gender: Male BSA: 2.4 m2 : :: 1950 Age: 69 yrs BP: 138/64 mmHg: :Reason For Study: dyspnea, tachycardia : : Performed By: Shanta Laureano : :Referring: DASHA BLAS : + + Interpretation Summary Segments of ventricular bigeminy noted throughout exam which seemed to be brought on by having the patient take a breath in and holding. The left ventricle is normal in size. Left ventricular systolic function is normal without focal wall motion abnormalities. The ejection fraction is estimated to be 55-60%. There has been no significant change since the previous exam. Diastolic parameters suggest a relaxation abnormality of the left ventricle, consistent with probable normal filling pressures. The right ventricle is normal in size and function. The right ventricular systolic pressure is estimated to be at least 30 mmHg based on an estimated right atrial pressure of 3 mm Hg. Both atria are normal in size. There is no significant valvular heart disease. The ascending aorta is mild-moderately enlarged. The aortic arch is mildly enlarged. No significant changes since 07/23/2014. Procedure: A two-dimensional transthoracic echocardiogram with color flow and Doppler was performed. The study quality was technically adequate. Comparison is made with the echocardiogram of 07/23/2014. The patient was in normal sinus rhythm during the exam. Segments of bigeminy noted throughout exam. Left Ventricle: The left ventricle is normal in size. Left ventricular wall thickness is mildly increased. Left ventricular systolic function is normal without focal wall motion abnormalities. The ejection fraction is estimated to be 55-60%. There has been no significant change since the previous exam. Diastolic parameters suggest a relaxation abnormality of the left ventricle, consistent with probable normal filling pressures. Right Ventricle: The right ventricle is normal in size and function. Atria: Both atria are normal in size. There is no Doppler evidence for an interatrial shunt. Mitral Valve: The mitral valve is normal in structure and function. There is trace mitral regurgitation. Aortic Valve: The aortic valve is trileaflet. The aortic valve opens well. There is no aortic valve stenosis. No aortic regurgitation is present. Tricuspid Valve: The tricuspid valve is normal in structure and function. There is mild tricuspid regurgitation. The right ventricular systolic pressure is estimated to be at least 30 mmHg based on an estimated right atrial pressure of 3 mm Hg. Pulmonic Valve: The pulmonic valve is normal in structure and function. There is trace pulmonic regurgitation. There is no significant valvular heart disease. Great Vessels: The aortic root is normal size. The ascending aorta is mild- moderately enlarged. The aortic arch is mildly enlarged. The IVC is of normal diameter and collapses greater than 50% with a sniff. This suggests a low right atrial pressure of 3 mm Hg. Pericardium/ Pleura There is no pericardial effusion. There has been no significant change since the previous study. MMode/2D Measurements & Calculations LVIDd: 4.7 cm LVOT diam: 2.3 cm LVIDs: 3.0 cm Ao root diam: 3.6 cm FS: 37.7 % asc Aorta Diam: 4.1 cm IVSd: 1.1 cm Ao Arch Diam (Prox Trans): 3.4 cm LVPWd: 1.1 cm LV hay. diameter/BSA (cm/m^2): 2.0 LV sys. diameter/BSA (cm/m^2): 1.2 LA A2 area: 21.9 cm2 RA long axis: 4.5 cm LA A4 area: 13.3 cm2 RA area: 12.2 cm2 LA length (vol): 4.3 cm RA vol: 28.6 ml LA vol: 56.9 ml RA : 11.9 ml/m2 LA vol index: 23.7 ml/m2 IVC diam: 1.3 cm RVD1 (basal): 3.5 cm TAPSE: 2.7 cm Doppler Measurements & Calculations Ao V2 max: 108.6 cm/sec LVOT Max Matt: 94.0 cm/sec Ao V2 mean: 69.7 cm/sec LV V1 max P.5 mmHg Ao max P.7 mmHg LV V1 VTI: 21.8 cm Ao mean P.3 mmHg SYD(I,D): 3.9 cm2 Ao V2 VTI: 22.8 cm SYD(V,D): 3.5 cm2 sev ratio: 0.95 SYD indexed to BSA (cm^2/m^2): 1.6 MV E max matt: 58.0 cm/sec TR max matt: 260.9 cm/sec MV A max matt: 66.9 cm/sec TR max P.2 mmHg MV E/A: 0.87 PA V2 max: 100.3 cm/sec Med Peak E' Matt: 6.2 cm/sec PA V2 mean: 67.0 cm/sec E/E' med: 9.3 PA mean P.0 mmHg Lat Peak E' Matt: 10.0 cm/sec E/E' lat: 5.8 E/e' average: 7.6 MV dec time: 0.25 sec SV(LVOT): 87.9 ml Reading Physician:03:51 PM
== END ==
PROVIDERS: Family Provider Physician Assistant; PCP Physician Assistant; Referring Provider Physician Assistant; Visit Provider Physician Assistant
DX: I07.1 Rheumatic tricuspid insufficiency (principal); I77.89 Other specified disorders of arteries and arterioles; R06.00 Dyspnea, unspecified; R00.0 Tachycardia, unspecified
CPT/HCPCS: 93306

== ENCOUNTER → 2020-01-01 15:21 | Outpatient (CLI) | payer MEDICARE, OTHER, SELFPAY ==
[2020-01-03 00:21] LABS: COVID19 Sendout Not Detected (Not Detect)
== END ==
PROVIDERS: Family Provider Physician Assistant; PCP Physician Assistant; Visit Provider Nurse Practitioner
DX: Z11.59 Encounter for screening for other viral diseases (principal)
CPT/HCPCS: 87635

== ENCOUNTER → 2020-01-04 12:45 | Outpatient (CLI) | payer MEDICARE, OTHER, SELFPAY ==
--- NOTE | 2020-01-12 08:31 | PM.PFT.1 ---
Pulmonary Function Test Referral & Results Date Patient Seen: 01/04/20 Requesting provider: Dania Wiley Results: The spirometry demonstrates an FVC of 3.38 L which is 70% of predicted. The FEV1 was measured at 2.55 L which is 72% of predicted. The FEV1/FVC ratio was 75 which is 102% of predicted. Following the administration of bronchodilator there was a 37% improvement in FEF 25-75%. Lung volumes show an SVC of 4.41 L which is 90% of predicted. The diffusing capacity was measured at 33.79 which is 96% of predicted. The maximum voluntary ventilation was reduced Interpretation: This study demonstrates mild to moderate obstructive lung disease based on reduction FEV1. There is some minimal evidence of benefit following bronchodilator particularly small airway flow based on improvement in FEF 25-75% Lung volumes and diffusing capacity are normal
== END ==
PROVIDERS: Family Provider Physician Assistant; PCP Physician Assistant; Referring Provider Physician Assistant; Visit Provider Physician Assistant
DX: R06.02 Shortness of breath (principal); J98.8 Other specified respiratory disorders
CPT/HCPCS: 94060; 94726; 94729

== ENCOUNTER → 2020-04-01 09:01 | Outpatient (CLI) | payer MEDICARE, OTHER, SELFPAY ==
[2020-04-02 12:46] LABS: COVID19 Sendout Not Detected (Not Detect)
== END ==
PROVIDERS: Family Provider Physician Assistant; PCP Physician Assistant; Visit Provider Physician Assistant
DX: Z11.59 Encounter for screening for other viral diseases (principal)
CPT/HCPCS: 87635

== ENCOUNTER → 2020-05-14 15:12 | Outpatient (CLI) | payer MEDICARE, OTHER, SELFPAY ==
[2020-05-14 16:08] LABS: Add Manual Diff / Slide Review NO; Basophils Absolute Auto 100 /uL (0-100); Basophils Percent Auto 0.9 % (0-2); Eosinophils Absolute Auto 100 /uL (0-450); Eosinophils Percent Auto 1.9 % (2-4); Hematocrit 45.1 % (41-53); Hemoglobin 15.2 g/dL (13.5-17.5); Lymphocytes Absolute Auto 1600 /uL (1100-4500); Lymphocytes Percent Auto 22.5 % (25-40); Mean Corpuscular HGB Conc 33.6 % (30-36); Mean Corpuscular Hemoglobin 28.2 PG (26-34); Mean Corpuscular Volume 83.9 fL (80-100); Monocytes Absolute Auto 600 /uL (0-900); Neutrophils Absolute Auto 4900 /uL (1500-7000); Neutrophils Percent Auto 66.7 % (50-75); Platelet Count 228 X10^3/uL (150-400); Red Blood Cell Count 5.38 X10^6/uL (4.5-5.9); Red Cell Distribution Width 14.1 % (11.6-14.8); White Blood Cell Count 7.3 X10^3/uL (4.5-11.0)
[2020-05-14 16:16] LABS: Alanine Aminotransferase 55 IU/L (<50); Albumin 4.3 g/dL (3.5-5.0); Albumin Globulin Ratio 1.3 (1.0-2.8); Alkaline Phosphatase 105 U/L (38-126); Aspartate Aminotransferase 37 IU/L (17-59); BUN Creatinine Ratio 23.2 (6-22); Bilirubin Total 0.4 mg/dL (0.2-1.3); Blood Urea Nitrogen 22 mg/dL (9-20); Calcium 9.5 mg/dL (8.4-10.2); Carbon Dioxide 30 mmol/L (22-32); Chloride 103 mmol/L (98-107); Cholesterol 169 mg/dL (140-199); Estimated Glomerular Filt Rate > 60.0 mL/min (>60); Globulin 3.3 g/dL (1.7-4.1); Glucose 113 mg/dL (80-110); HDL Cholesterol 41 mg/dL (40-60); HEMOLYSIS < 15 (0-50); LDL Cholesterol Calculated 82 mg/dL (<100); Potassium 4.3 mmol/L (3.4-5.1); Sodium 138 mmol/L (137-145); Total Protein 7.6 g/dL (6.3-8.2); Triglycerides 229 mg/dL (35-150)
== END ==
PROVIDERS: Family Provider Physician Assistant; PCP Physician Assistant; Referring Provider Physician Assistant; Visit Provider Physician Assistant
DX: I10 Essential (primary) hypertension (principal); E78.2 Mixed hyperlipidemia; F41.9 Anxiety disorder, unspecified; G47.00 Insomnia, unspecified
CPT/HCPCS: 36415; 80053; 80061; 85025

== ENCOUNTER → 2020-09-30 17:16 | Outpatient (CLI) | payer MEDICARE, OTHER, SELFPAY ==
[2020-09-30 17:50] LABS: Add Manual Diff / Slide Review NO; Basophils Absolute Auto 100 /uL (0-100); Basophils Percent Auto 1.1 % (0-2); Eosinophils Absolute Auto 200 /uL (0-450); Eosinophils Percent Auto 2.2 % (2-4); Hematocrit 41.8 % (41-53); Hemoglobin 14.5 g/dL (13.5-17.5); Lymphocytes Absolute Auto 1700 /uL (1100-4500); Lymphocytes Percent Auto 23.4 % (25-40); Mean Corpuscular HGB Conc 34.7 % (30-36); Mean Corpuscular Hemoglobin 28.9 PG (26-34); Mean Corpuscular Volume 83.2 fL (80-100); Monocytes Absolute Auto 500 /uL (0-900); Monocytes Percent Auto 6.4 % (3-14); Neutrophils Absolute Auto 4900 /uL (1500-7000); Neutrophils Percent Auto 66.9 % (50-75); Platelet Count 218 X10^3/uL (150-400); Red Blood Cell Count 5.02 X10^6/uL (4.5-5.9); White Blood Cell Count 7.3 X10^3/uL (4.5-11.0)
[2020-09-30 17:53] LABS: Hemoglobin A1C% w Est Avg Glu 5.8 % (4.0-6.0)
[2020-09-30 17:57] LABS: Alanine Aminotransferase 47 IU/L (<50); Albumin 4.3 g/dL (3.5-5.0); Albumin Globulin Ratio 1.4 (1.0-2.8); Alkaline Phosphatase 114 U/L (38-126); Aspartate Aminotransferase 27 IU/L (17-59); BUN Creatinine Ratio 17.2 (6-22); Bilirubin Total 0.3 mg/dL (0.2-1.3); Blood Urea Nitrogen 20 mg/dL (9-20); Calcium 9.5 mg/dL (8.4-10.2); Carbon Dioxide 32 mmol/L (22-32); Chloride 102 mmol/L (98-107); Estimated Glomerular Filt Rate > 60.0 mL/min (>60); Globulin 3.1 g/dL (1.7-4.1); Glucose 103 mg/dL (80-110); HEMOLYSIS < 15 (0-50); Potassium 4.2 mmol/L (3.4-5.1); Sodium 139 mmol/L (137-145); Total Protein 7.4 g/dL (6.3-8.2)
[2020-09-30 18:05] LABS: NT-proBNP (BNP-Adult 18+) 35 pg/mL (<125)
[2020-09-30 18:28] LABS: TSH w/ Reflex to FT4 1.75 uIU/mL (0.47-4.68)
[2020-09-30 18:31] LABS: Ferritin 50 ng/mL (18-464)
== END ==
PROVIDERS: Family Provider Physician Assistant; PCP Physician Assistant; Referring Provider Physician Assistant; Visit Provider Physician Assistant
DX: R73.03 Prediabetes (principal); R53.83 Other fatigue; R06.02 Shortness of breath
CPT/HCPCS: 36415; 80053; 82728; 83036; 83880; 84443; 85025

== ENCOUNTER → 2021-06-16 14:12 | Outpatient (CLI) | payer MEDICARE, OTHER, SELFPAY ==
--- NOTE | 2021-06-16 | DI.RAD.S_ITS ---
PROCEDURE: XR CERVICAL SPINE 2V OR 3V INDICATIONS: NECK PAIN TECHNIQUE: 3 view(s) of the cervical spine were acquired. COMPARISON: None. FINDINGS: Bones: No fractures or dislocations to the T1 level. The lateral masses of C1 appear intact on the odontoid view. No suspicious bony lesions. Loss of lordosis which could be related to muscle spasm, rigidity or simply positional. Multilevel disc degeneration, most notably and moderate at the C6-C7 and C7-T1 levels. Mild multilevel mid and lower cervical spine facet joint arthropathy and uncovertebral hypertrophy. Soft tissues: No prevertebral soft tissue swelling. IMPRESSION: Multilevel spondylosis. Dictated by: Sabino Cruz [facility] Interpreted: Hardik Reddy MD on 06/16/2021 at 15:09 Transcribed by: MARÍA on 06/16/2021 at 15:10 Approved by: Hardik Reddy M.D. on 06/16/2021 at 15:59
== END ==
PROVIDERS: Family Provider Physician Assistant; PCP Physician Assistant; Referring Provider Internal Medicine; Visit Provider Internal Medicine
DX: M54.2 Cervicalgia (principal); M47.812 Spondylosis without myelopathy or radiculopathy, cervical region
CPT/HCPCS: 72040

== ENCOUNTER → 2021-07-19 14:59 | Outpatient (CLI) | payer MEDICARE, OTHER, SELFPAY ==
--- NOTE | 2021-07-19 | DI.MRI.S_ITS ---
PROCEDURE: MR CERVICAL SPINE WO CON INDICATIONS: Strain of muscle, fascia and tendon at neck level, TECHNIQUE: Noncontrast sagittal T1 spin echo and T2 fast spin echo, sagittal STIR, foraminal oblique sagittal T2 fast spin echo, and axial gradient echo or T2 fast spin echo through the cervical spine. COMPARISON: None. FINDINGS: Image quality: Excellent. Alignment and Curvature: There is normal bony alignment. Bone Marrow: Modic type 2 reactive endplate changes noted adjacent to the C4-C5, C5-C6 and C6-C7 discs. Spinal Cord: Visualized spinal cord has normal size and signal. No cerebellar tonsillar herniation. Paraspinous Soft Tissues: No paravertebral masses. Prevertebral soft tissues are normal in thickness. C2-C3: Normal appearance. C3-C4: Loss of disc signal. Mild bilateral facet hypertrophy. No central stenosis. Mild bilateral neural foraminal narrowing. No neural compression. C4-C5: Loss of disc signal and slight loss of disc height. Mild, diffuse disc bulge. Mild bilateral facet hypertrophy. Mild narrowing of the central canal. No neural foraminal narrowing. No neural compression. C5-C6: Loss of disc signal and slight loss of disc height. Mild, diffuse disc bulge. Mild bilateral facet hypertrophy. Mild bilateral uncovertebral joint hypertrophy. Mild narrowing of the central canal. No neural foraminal narrowing. No neural compression. C6-C7: Loss of disc signal and height. Moderate, diffuse disc bulge. Mild bilateral facet hypertrophy. Moderate bilateral uncovertebral joint hypertrophy. Moderate narrowing of the central canal. Moderate to severe right and moderate left neural foraminal narrowing. No neural compression C7-T1: Loss of disc signal. Mild, diffuse disc bulge. No central stenosis. No neural foraminal narrowing. No neural compression. IMPRESSION: 1. Multilevel degenerative disc disease. 2. Multilevel facet arthropathy. 3. No severe central canal narrowing. 4. No severe neural foraminal narrowing. 5. No neural compression. Dictated by: Leda Cedeño MD, PhD on 07/21/2021 at 10:08 Approved by: Leda Cedeño MD, PhD on 07/21/2021 at 10:12
== END ==
PROVIDERS: Family Provider Physician Assistant; PCP Physician Assistant; Referring Provider Physical Medicine & Rehabilitation Pain Medicine; Visit Provider Physical Medicine & Rehabilitation Pain Medicine
DX: S16.1XXA Strain of muscle, fascia and tendon at neck level, initial encounter (principal); M50.31 Other cervical disc degeneration, high cervical region; M48.02 Spinal stenosis, cervical region; M47.816 Spondylosis without myelopathy or radiculopathy, lumbar region; X58.XXXA Exposure to other specified factors, initial encounter
CPT/HCPCS: 72141

== ENCOUNTER → 2022-10-25 15:31 | Outpatient (CLI) | payer MEDICARE, OTHER, SELFPAY ==
--- NOTE | 2022-10-25 15:35 | DI.RAD.S_ITS ---
PROCEDURE: XR RIBS RT MIN 3V W CXR 1V INDICATIONS: Rib pain TECHNIQUE: 2 views of the right ribs were acquired, along with a single view chest. COMPARISON: [facility], CT, CT CHEST WITHOUT CONTRAST, 10/14/2022, 11:09. FINDINGS: Surgical changes and devices: None. Bones and chest wall: A marker is placed upon the area of clinical concern. Within this region, no displaced rib fracture or other significant rib abnormality can be seen. No rib fractures are seen elsewhere. No suspicious bony lesions. Age-appropriate bony degenerative changes are seen. Overlying soft tissues appear unremarkable. Lungs and pleura: An incomplete inspiratory result is noted, causing a crowded appearance to the lung markings. No focal infiltrates are seen. No pneumothorax or significant pleural effusions are seen. Mediastinum: Mediastinal contours appear normal. Heart size is normal. IMPRESSION: No displaced rib fracture is seen. No pneumothorax. Dictated by: Lawrence Hewitt M.D. on 10/25/2022 at 17:55 Approved by: Lawrence Hewitt M.D. on 10/25/2022 at 17:56
== END ==
PROVIDERS: Family Provider Physician Assistant; PCP Physician Assistant; Referring Provider Nurse Practitioner Family; Visit Provider Nurse Practitioner Family
DX: R07.81 Pleurodynia (principal)
CPT/HCPCS: 71101

== ENCOUNTER → 2023-01-12 10:49 | Outpatient (CLI) | payer MEDICARE, OTHER, SELFPAY | PROVIDERS: Family Provider Physician Assistant; PCP Physician Assistant; Visit Provider Physician Assistant | DX: S81.801A Unspecified open wound, right lower leg, initial encounter (principal) | CPT/HCPCS: 87070; 87077; 87147; 87186; 87205 ==

== ENCOUNTER → 2023-01-14 09:23 | Outpatient (CLI) | payer MEDICARE, OTHER, SELFPAY | PROVIDERS: Family Provider Physician Assistant; PCP Physician Assistant; Referring Provider Urology; Visit Provider Surgery | DX: S81.821A Laceration with foreign body, right lower leg, initial encounter (principal) | CPT/HCPCS: 10120; 99203; 99213 ==

== ENCOUNTER → 2023-01-21 09:11 | Outpatient (CLI) | payer MEDICARE, OTHER, SELFPAY | PROVIDERS: Family Provider Physician Assistant; PCP Physician Assistant; Referring Provider Physician Assistant; Visit Provider Surgery | DX: S81.821A Laceration with foreign body, right lower leg, initial encounter (principal) | CPT/HCPCS: 11042 ==

== ENCOUNTER → 2023-01-28 09:26 | Outpatient (CLI) | payer MEDICARE, OTHER, SELFPAY | PROVIDERS: Family Provider Physician Assistant; PCP Physician Assistant; Referring Provider Physician Assistant; Visit Provider Surgery | DX: S81.821A Laceration with foreign body, right lower leg, initial encounter (principal); R60.0 Localized edema | CPT/HCPCS: 11042 ==

== ENCOUNTER → 2023-02-11 08:58 | Outpatient (CLI) | payer MEDICARE, OTHER, SELFPAY | PROVIDERS: Family Provider Physician Assistant; PCP Physician Assistant; Referring Provider Physician Assistant; Visit Provider Surgery | DX: S81.821A Laceration with foreign body, right lower leg, initial encounter (principal); R60.0 Localized edema; F11.20 Opioid dependence, uncomplicated | CPT/HCPCS: 11042 ==

== ENCOUNTER → 2023-02-18 09:39 | Outpatient (CLI) | payer MEDICARE, OTHER, SELFPAY | PROVIDERS: Family Provider Physician Assistant; PCP Physician Assistant; Referring Provider Physician Assistant; Visit Provider Surgery | DX: S81.811A Laceration without foreign body, right lower leg, initial encounter (principal); R60.0 Localized edema | CPT/HCPCS: 11042; 99213 ==

== ENCOUNTER → 2023-02-25 10:41 | Outpatient (CLI) | payer MEDICARE, OTHER, SELFPAY | PROVIDERS: Family Provider Physician Assistant; PCP Physician Assistant; Visit Provider Surgery | DX: S81.811A Laceration without foreign body, right lower leg, initial encounter (principal); S81.801A Unspecified open wound, right lower leg, initial encounter; R60.0 Localized edema | CPT/HCPCS: 11042; 99213 ==

== ENCOUNTER → 2023-03-04 11:31 | Outpatient (CLI) | payer MEDICARE, OTHER, SELFPAY | PROVIDERS: Family Provider Physician Assistant; PCP Physician Assistant; Referring Provider Physician Assistant; Visit Provider Surgery | DX: S81.821D Laceration with foreign body, right lower leg, subsequent encounter (principal) | CPT/HCPCS: 99213 ==

== ENCOUNTER → 2023-05-06 11:11 | Outpatient (CLI) | payer MEDICARE, OTHER, SELFPAY ==
--- NOTE | 2023-05-06 11:13 | DI.RAD.S_ITS ---
PROCEDURE: XR HAND LT MIN 3V INDICATIONS: Left hand injury TECHNIQUE: 3 views of the hand(s) acquired. COMPARISON: [facility] [place], CR, XR FINGER(S) LT 2VW, 07/14/2016, 14:18. [facility] [place], CR, XR FINGER(S) LT 2VW, 08/12/2016, 14:00. FINDINGS: Bones: No fractures or dislocations. There is a lucency in the base of the 1st distal phalanx. Carpal bones are normally aligned. No suspicious bony lesions. Rpzpmuht-so-xmxnld osteoarthritic changes, most pronounced at the 1st carpometacarpal joint and the 3rd distal interphalangeal joint. Soft tissues: No suspicious soft tissue calcifications. IMPRESSION: 1. No acute osseous abnormality. If clinical symptoms persist or clinical suspicion for pathology is high, a repeat examination in 7-10 days, or advanced imaging such as CT or MRI is suggested for further evaluation. 2. 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 3. Hmlyopbo-dw-txktsm osteoarthritis. Dictated by: Paris Stevens M.D. on 05/06/2023 at 13:03 Approved by: Paris Stevens M.D. on 05/06/2023 at 13:11
== END ==
PROVIDERS: Family Provider Physician Assistant; PCP Physician Assistant; Referring Provider Nurse Practitioner Family; Visit Provider Nurse Practitioner Family
DX: S69.92XA Unspecified injury of left wrist, hand and finger(s), initial encounter (principal); M19.042 Primary osteoarthritis, left hand; X58.XXXA Exposure to other specified factors, initial encounter
CPT/HCPCS: 73130

== ENCOUNTER → 2023-10-27 07:36 | Outpatient (CLI) | payer MEDICARE, OTHER, SELFPAY ==
--- NOTE | 2023-10-28 08:24 | DI.NM.S_ITS ---
DATE OF SERVICE: 10/27/2023 PROCEDURE: Exercise treadmill stress test without imaging. ORDERING PROVIDER: Monica Birch MD. INDICATIONS: The patient is a 71-year-old male with a history of hyperlipidemia, exertional dyspnea, and SVT. FINDINGS: 1. The patient was able to exercise for 7 minutes 7 seconds on a standard Santino protocol suggesting good exercise capacity with an MARJORIE of -11%, achieving 10.1 METs. 2. The patient had a mildly blunted heart rate response to exercise with a resting heart rate of 69 BPM, increasing to a maximum of 110 BPM (75% of his predicted maximum). He had a normal blood pressure response. 3. He had no chest discomfort or other anginal symptoms except for exertional dyspnea and fatigue. 4. His resting ECG showed sinus rhythm with a first-degree AV block but normal ST segments. There were no significant ST-segment shifts or arrhythmias with stress. IMPRESSION: 1. Normal exercise treadmill stress test for ischemia, although with reduced sensitivity because of a blunted heart rate response to exercise, achieving only 75% of his predicted maximum. 2. Good exercise capacity without angina or arrhythmias. Yang Duran - // doc#: [id number]/job#: [id number] dd: 10/27/2023 13:16:00 dt: 10/27/2023 15:40:00 DICTATING MD/COPIES TO: Neal Arreguin MD; Monica Birch MD COPIES MNE: CHOLO;
== END ==
LOC: RAD 07:36
PROVIDERS: Family Provider Physician Assistant; PCP Physician Assistant; Referring Provider Internal Medicine Cardiovascular Disease; Visit Provider Internal Medicine Cardiovascular Disease
DX: I47.10 Supraventricular tachycardia, unspecified; R06.09 Other forms of dyspnea; E78.5 Hyperlipidemia, unspecified
CPT/HCPCS: 93017

== ENCOUNTER → 2023-11-15 08:00 | Outpatient (CLI) | payer MEDICARE, OTHER, SELFPAY ==
--- NOTE | 2023-11-15 08:01 | DI.ECHO.S_ITS ---
[facility] : : [address] : : [place] : : [id number] : : Phone: [phone] Echocardiogram Report + + :Name: GELA DICK Study Date: 11/15/2023 Height: 71 in : :Hospital ReadingLocation: Weight: 250 lb : : Gender: Male BSA: 2.3 m2 : :: 1950 Age: 73 yrs BP: 116/74 mmHg: :Reason For Study: SUPRAVENTRICULAR TACHYCARDIA : :Ordering Physician: KALLIE, : :SABA Performed By: Diego Smith : :Referring: SABA BIRCH : + + Interpretation Summary 1) Normal left ventricular thickness, size, wall motion, and systolic function (EF 55-60%). 2) Upper normal right ventricular size with normal function. 3) No significant valvular abnormalities. 4) Compared to the Echo done 11/28/2019, no significant change. Procedure: A two-dimensional transthoracic echocardiogram with color flow and Doppler was performed. The study quality was technically adequate. Comparison is made with the echocardiogram of 11/28/2019. The patient was in sinus rhythm with heart rates between 59-64 bpm during the exam. Left Ventricle: The left ventricle is normal in size and wall thickness. The ejection fraction is estimated to be 55-60%. Left ventricular systolic function appears normal without focal wall motion abnormalities. Right Ventricle: The right ventricle is at the upper limits of normal in size. The right ventricular systolic function is normal. Atria: The left atrium is mildly dilated. Right atrial size is normal. The interatrial septum grossly appears intact with no obvious evidence for an atrial septal defect. Mitral Valve: The mitral valve is normal in structure and function. There is no mitral valve stenosis. There is trace mitral regurgitation. Aortic Valve: The aortic valve is trileaflet. There is no aortic valve stenosis. No aortic regurgitation is present. Tricuspid Valve: The tricuspid valve is normal in structure and function. There is no tricuspid stenosis. There is mild tricuspid regurgitation. Pulmonary artery pressures cannot be estimated because of the lack of a measurable TR jet velocity. Pulmonic Valve: The pulmonic valve is not well visualized. There is no pulmonic valvular stenosis. There is no pulmonic valvular regurgitation. Great Vessels: The aortic root is normal size. The ascending aorta is at the upper limits of normal in size. The inferior vena cava was not visualized. Pericardium/ Pleura There is no pericardial effusion. There is no pleural effusion. MMode/2D Measurements & Calculations LVIDd: 5.0 cm LVOT diam: 2.6 cm LVIDs: 3.5 cm Ao root diam: 3.7 cm FS: 29.7 % asc Aorta Diam: 4.0 cm IVSd: 1.1 cm Ao Arch Diam (Prox Trans): 3.1 cm LVPWd: 0.93 cm LV hay. diameter/BSA (cm/m^2): 2.1 LV sys. diameter/BSA (cm/m^2): 1.5 LA A2 area: 21.4 cm2 RA long axis: 5.9 cm LA A4 area: 25.5 cm2 RA area: 18.2 cm2 LA length (vol): 6.2 cm RA vol: 48.1 ml LA vol: 74.2 ml RA : 20.8 ml/m2 LA vol index: 32.0 ml/m2 RVD1 (basal): 4.0 cm RVD2 (mid): 3.7 cm TAPSE: 2.6 cm Doppler Measurements & Calculations Ao V2 max: 137.4 cm/sec LVOT Max Matt: 117.1 cm/sec Ao V2 mean: 100.1 cm/sec LV V1 max P.5 mmHg Ao max P.6 mmHg LV V1 VTI: 25.1 cm Ao mean P.4 mmHg SYD(I,D): 4.3 cm2 Ao V2 VTI: 30.8 cm SYD(V,D): 4.5 cm2 sev ratio: 0.81 SYD indexed to BSA (cm^2/m^2): 1.9 MV E max matt: 67.6 cm/sec TR max matt: 260.6 cm/sec MV A max matt: 57.8 cm/sec TR max P.2 mmHg MV E/A: 1.2 PA V2 max: 89.6 cm/sec Med Peak E' Matt: 7.6 cm/sec PA V2 mean: 65.8 cm/sec E/E' med: 8.9 PA mean P.9 mmHg Lat Peak E' Matt: 9.1 cm/sec PA pr(Accel): 46.5 mmHg E/E' lat: 7.4 E/e' average: 8.2 MV dec time: 0.22 sec SV(LVOT): 132.8 ml Reading Physician:10:24 AM
== END ==
PROVIDERS: Family Provider Physician Assistant; PCP Physician Assistant; Referring Provider Internal Medicine Cardiovascular Disease; Visit Provider Internal Medicine Cardiovascular Disease
DX: I07.1 Rheumatic tricuspid insufficiency (principal); I47.10 Supraventricular tachycardia, unspecified; R06.09 Other forms of dyspnea
CPT/HCPCS: 93306

== ENCOUNTER 2024-07-17 18:54 | Emergency (ER) | payer OTHER, SELFPAY ==
[2024-07-17 19:11] VITALS: PULSE 78; RESP 12; TEMP 36.4; O2SAT 98; BMI 31.1
[2024-07-17 23:19] VITALS: BP 141/76; PULSE 61; O2SAT 99
[2024-07-18 01:05] VITALS: PULSE 65; O2SAT 95
[2024-07-18 01:06] VITALS: BP 170/84; PULSE 59; O2SAT 95
--- NOTE | 2024-07-18 02:19 | ED_ITS ---
HPI - Wound/Laceration General Chief Complaint: Wound/Laceration Stated Complaint: arm laceration Time Seen by Provider: 07/18/24 02:19 Source: patient Mode of arrival: Family Vehicle History of Present Illness HPI narrative: 73-year-old male cut his right volar forearm accidentally while trying to move metal equipment about 5:00 p.m. last night. Local wound care and dressing. Last tetanus shot was a few years ago, believes it was less than 5 years ago. He has no problems with moving his right hand/wrist/fingers. No numbness or tingling to distal extremity. No other injuries. Related Data Home Medications Medication Instructions Recorded Confirmed melatonin 3 mg capsule 3 mg PO BEDTIME PRN 12/22/19 10/19/23 albuterol sulfate 90 mcg/actuation 1 puff inhalation QID 02/07/20 10/19/23 aerosol inhaler oxycodone-acetaminophen 5 mg-325 1 tab PO Q8H PRN 02/07/20 10/19/23 mg tablet diltiazem HCl 120 mg 120 mg PO DAILY 02/13/22 10/19/23 capsule,extended release 24 hr clonazepam 1 mg tablet 1 mg PO ONCE PM PRN 05/06/23 10/19/23 mupirocin 2 % topical ointment 1 applic topical 05/06/23 10/19/23 naloxone 4 mg/actuation nasal spray spray intranasal 05/06/23 10/19/23 pantoprazole 40 mg tablet,delayed 40 mg PO DAILY 05/06/23 10/19/23 release Previous Rx's Medication Instructions Recorded amitriptyline 150 mg tablet 150 mg PO HS 90 days #90 tabs 02/13/22 Allergies Allergy/AdvReac Type Severity Reaction Status Date / Time iodine [IODINE] Allergy Unknown Hot rash Verified 07/17/24 19:13 diltiazem AdvReac Mild Aches all Verified 07/17/24 19:13 over Patient History Medical History Obstructive sleep apnea Social History Smoking Status: Never smoker Smoking Status: Never smoker Exam Narrative Exam Narrative: GENERAL: Well-developed patient, in mild distress. HEAD: Atraumatic. Normocephalic. EYES: Pupils equal round and reactive. Extraocular motions intact. No scleral icterus. No injection or drainage. ENT: Nose without bleeding, purulent drainage. Throat without erythema, tonsillar hypertrophy or exudate. Airway patent. NECK: Trachea midline. Non tender CARDIOVASCULAR: Regular rate and rhythm without murmurs, gallops, or rubs. RESPIRATORY: Clear to auscultation. Breath sounds equal bilaterally. No wheezes, rales, or rhonchi. GASTROINTESTINAL: Abdomen soft, non-tender, nondistended. EXTREMITIES: Laceration curvilinear 4.5 cm with some gaping, through to subcutaneous layer, no visible tendon or muscle belly structures, no visible or palpable foreign bodies. BACK: Nontender without deformity or crepitance. No flank tenderness. NEURO: AOx3. Motor functions grossly nonfocal SKIN: No rash or erythema of visible areas Initial Vital Signs Initial Vital Signs: Vital Signs Temperature 97.5 F L 07/17/24 19:11 Pulse Rate 78 07/17/24 19:11 Respiratory Rate 12 07/17/24 19:11 Pulse Oximetry 98 07/17/24 19:11 Oxygen Delivery Method Room Air 07/17/24 19:11 Procedures Laceration Repair Laceration 1: Time of procedure: 02:51 Side (If applicable): right Size (cm): 4.5 Description: linear (Curvilinear) Local Anesthetic: lidocaine 2% and with epi Amount of anesthesia used (mL): 6 Skin layer closed with: nylon Skin layer suture size: 3-0 Number of sutures: 6 Technique: simple, interrupted (Interrupted vertical mattress sutures, 6 total sutures for primary closure. No deep layer sutures) Course Orders Ordered: Discontinued Medications Bacitracin (Bacitracin Oint 0.9 Gm Pckt) 1 applic TOP NOW ONE Stop: 07/18/24 02:47 Last Admin: 07/18/24 02:52 Dose: 1 applic Documented By: MIKE Lidocaine/Epinephrine (Lidocaine 2% W/Epi Inj 10 Ml Vial) 10 ml INJ NOW ONE Stop: 07/18/24 02:26 Last Admin: 07/18/24 02:52 Dose: 10 ml Documented By: MIKE Vital Signs Vital signs: Vital Signs - 8 hr 07/17/24 23:19 07/18/24 01:05 07/18/24 01:06 Pulse Rate 61 65 Respiratory Rate Blood Pressure 141/76 H 170/84 H Pulse Oximetry 99 95 Oxygen Delivery Method Room Air 07/18/24 01:06 07/18/24 03:00 07/18/24 03:01 Pulse Rate 59 L 59 L 59 L Respiratory Rate 17 Blood Pressure Pulse Oximetry 95 95 96 Oxygen Delivery Method Room Air 07/18/24 03:01 Pulse Rate Respiratory Rate Blood Pressure 144/73 H Pulse Oximetry Oxygen Delivery Method MDM - Wound/Laceration MDM Narrative Medical decision making narrative: 73-year-old male right volar forearm laceration from moving metal object, through subcutaneous not through muscle bellies or tendon structures, no visible foreign bodies. We did discuss retained foreign bodies, offered x-ray imaging, he declined. Primary closure with suturing, see separate procedure note. Antibiotic ointment applied over wound sutures, nonstick dressing, Bo wrap. Advised taking Tylenol and or Motrin for pain control. Patient traveling to [place] soon, advised wound check in 2 days, likely suture removal at 7 days if no signs symptoms of infection. The expressed understanding. Discharge Plan Departure Patient Disposition: Home Clinical Impression: Laceration of forearm Instructions: DI for Laceration Repair Activity Restrictions/Additional Instructions: Accidental laceration to right forearm while moving metal equipment. Curvilinear laceration through the skin and into the subcutaneous layer, could not see any muscle bellies or tendon structures, nor could I see any foreign body materials on wound exploration. It is possible to have foreign body material in the wound however, we did discuss x-rays, you declined x-rays to look for foreign bodies. Doubt any bony fracture by mechanism and by exam. Tetanus reported within the last 5 years up-to-date. Wound closed with suturing, vertical mattress like sutures, 6 total sutures. Advised wound check in the next couple of days. Take Tylenol and or Motrin as needed for pain control. Suture removal likely in 7 days if there is no development of infection. Return earlier to this/nearest emergency department for any change worsening symptoms or any concerns prior Prescriptions: No Action pantoprazole 40 mg tablet,delayed release (DR/EC) 40 mg PO DAILY naloxone 4 mg/actuation spray,non-aerosol intranasal clonazepam 1 mg tablet 1 mg PO ONCE PM PRN mupirocin 2 % ointment 1 applic topical melatonin 3 mg capsule 3 mg PO BEDTIME PRN albuterol sulfate 90 mcg/actuation HFA aerosol inhaler 1 puff INHALATION QID oxycodone-acetaminophen 5-325 mg tablet 1 tab PO Q8H PRN diltiazem HCl 120 mg capsule,extended release 24hr 120 mg PO DAILY Patient Comments: TAKE ONE CAPSULE BY MOUTH ONE TIME DAILY FOR HEART. amitriptyline 150 mg tablet 150 mg PO HS 90 Days Qty: 90 1RF Hold Instructions: 04/24/19: hold for venlafaxine trial Referrals: Josephine Ritter PA-C [Primary Care Provider] - Stand Alone Forms: Patient Portal/API/Survey
[2024-07-18] MEDS: BACITRACIN OINT 0.9 GM PCKT 1 APPLIC TOP (02:52)
[2024-07-18] MEDS: LIDOCAINE 2% W/EPI INJ 10 ML VIAL INJ (02:52)
[2024-07-18 03:00] VITALS: PULSE 59; O2SAT 95
[2024-07-18 03:01] VITALS: BP 144/73; PULSE 59; RESP 17; O2SAT 96
--- NOTE | 2024-07-18 03:02 | PC.NURSE ---
Cleansed wound with NS and betadine, dressed with bacitracin, non adherent pad, kerlix wrap. No complications. Instructions of care given to pt, pt verbalizes understanding. No questions at this time
== END 2024-07-18 03:05 | disposition home or self-care (01) ==
PROVIDERS: Emergency Provider Emergency Medicine; Family Provider Physician Assistant; PCP Physician Assistant
DX: S51.811A Laceration without foreign body of right forearm, initial encounter (principal); W45.8XXA Other foreign body or object entering through skin, initial encounter; Y93.89 Activity, other specified
CPT/HCPCS: 12002; 99283